=== PATIENT | female | born 1950 | race Caucasian/White ===

== ENCOUNTER → 2017-04-13 | Outpatient (CLI) | payer MEDICARE, OTHER, SELFPAY | PROVIDERS: Visit Provider Internal Medicine | DX: Z12.31 Encounter for screening mammogram for malignant neoplasm of breast (principal) | CPT/HCPCS: 77067; G0202 ==

== ENCOUNTER → 2018-02-13 09:32 | Outpatient (CLI) | payer MEDICARE, OTHER, SELFPAY | PROVIDERS: PCP Internal Medicine; Visit Provider Internal Medicine | DX: I10 Essential (primary) hypertension (principal); R07.9 Chest pain, unspecified | CPT/HCPCS: 93005 ==

== ENCOUNTER → 2018-04-15 08:46 | Outpatient (CLI) | payer MEDICARE, OTHER, SELFPAY ==
--- NOTE | 2018-04-15 08:48 | MM_ITS ---
MM Dig screening mamm BI w/CAD CAD Screening COMPARISON: Mammograms with CAD 04/13/2017 and 04/10/2016 INDICATION: There is no personal or family history of breast cancer. There has been a previous stereotactic biopsy right breast for benign disease. TECHNIQUE: Standard CC and MLO images were obtained. R2 CAD reviewed. FINDINGS: Scattered fibroglandular densities are seen in the central portions of both breasts. There are few scattered benign-appearing microcalcifications in each breast. There are 2 tiny nodular densities upper outer quadrant left breast which are stable. There is a biopsy clip right breast and there are scattered benign-appearing microcalcifications in each breast. There are no suspicious microcalcifications. IMPRESSION: Fibrofatty parenchyma no suspicious lesion seen BI-RADS Category: 2 Benign Finding(s) RECOMMENDED FOLLOW-UP: 1YR - 1 YEAR FOLLOW-UP (A letter has been sent to the patient regarding results of the study.)
== END ==
PROVIDERS: PCP Internal Medicine; Visit Provider Internal Medicine
DX: Z12.31 Encounter for screening mammogram for malignant neoplasm of breast (principal)
CPT/HCPCS: 77067

== ENCOUNTER → 2019-04-17 08:42 | Outpatient (CLI) | payer MEDICARE, OTHER, SELFPAY ==
--- NOTE | 2019-04-17 08:45 | MM_ITS ---
PROCEDURE: MM DIG SCREENING MAMM BI W/CAD CLINICAL INDICATION: SCREENING There is no personal or family history of breast cancer. There been a previous biopsy right breast for benign disease. COMPARISON: [facility] DIG MAMM-SCREEN ROZ from 04/10/2016 [facility] DIG MAMM-SCREEN ROZ W/CAD from 04/13/2017 [facility] MM Dig screening mamm BI w/CAD from 04/15/2018 TECHNIQUE: Standard CC and MLO images were obtained. R2 CAD reviewed. FINDINGS: Scattered fibroglandular densities are seen throughout both breasts. There is a biopsy clip right breast. There is mild ductal hyperplasia in the subareolar regions of both breasts. There are few scattered benign-appearing microcalcifications in each breast. There are couple low-lying nodes near the axillary tail left breast. There is no suspicious lesion in either breast and no suspicious microcalcifications. IMPRESSION: Moderate breast density with no suspicious lesions seen BI-RAD Category: 2 Benign Finding(s) FOLLOW-UP: 1YR 1 Year Follow-up (A letter has been sent to the patient regarding results of the study.) Dictated by: Dr. Andres Mcclendon MD 04/22/2019 10:[address] Andres Mcclendon MD in [place] 04/22/2019 10:52
== END ==
PROVIDERS: PCP Internal Medicine; Visit Provider Internal Medicine
DX: Z12.31 Encounter for screening mammogram for malignant neoplasm of breast (principal)
CPT/HCPCS: 77067

== ENCOUNTER → 2020-04-19 07:55 | Outpatient (CLI) | payer MEDICARE, OTHER, SELFPAY ==
--- NOTE | 2020-04-19 08:02 | MM_ITS ---
PROCEDURE: MM DIG SCREENING MAMM BI W/CAD Digital Breast Tomosynthesis Included CLINICAL INDICATION: SCREENING There is no personal or family history of breast cancer. There has been a previous biopsy right breast benign disease. COMPARISON: MG [facility] DIG MAMM-SCREEN ROZ W/CAD from 04/13/2017 MG [facility] MM Dig screening mamm BI w/CAD from 04/15/2018 MG MM DIG SCREENING MAMM BI W/CAD from 04/17/2019 TECHNIQUE: Standard CC and MLO images and 3D Tomosynthesis was obtained. R2 CAD reviewed. FINDINGS: [id number] fibroglandular densities are seen in the central portions of both breast. There is mild ductal hyperplasia. There is a biopsy clip upper outer portion right breast. There are few scattered benign-appearing microcalcifications in each breast. There is no suspicious lesion in either breast and no suspicious microcalcifications. IMPRESSION: Stable exam with mild ductal hyperplasia and no suspicious lesions seen BI-RAD Category: 2 Benign Finding(s) FOLLOW-UP: 1YR 1 Year Follow-up (A letter has been sent to the patient regarding results of the study.) Dictated by: Dr. Andres Mcclendon MD 04/19/2020 15:24 Dr. Andres Mcclendon MD in [place] 04/19/2020 15:24
== END ==
PROVIDERS: PCP Internal Medicine; Visit Provider Internal Medicine
DX: Z12.31 Encounter for screening mammogram for malignant neoplasm of breast (principal)
CPT/HCPCS: 77063; 77067

== ENCOUNTER → 2021-02-23 18:15 | Outpatient (CLI) | payer MEDICARE, OTHER, SELFPAY ==
[2021-02-23 21:32] LABS: Chloride 106 mmol/L (98-107); Potassium 4.8 mmoL/L (3.5-5.1); Sodium 142 mmol/L (136-145)
[2021-02-23 21:34] LABS: Alanine Aminotransferase 16 U/L (12-78); Alkaline Phosphatase 73 U/L (38-126); Aspartate Amino Transferase 24 U/L (14-36); Bilirubin,Total 0.5 mg/dl (0.2-1.3); Blood Urea Nitrogen 17 mg/dl (7-17); Estimated Glomerular Filt Rate 82 ml/min (>60); GFR (African American) 100 ML/MIN (>60)
[2021-02-23 21:35] LABS: Albumin Level 4.3 g/dl (3.5-5.0); Albumin/Globulin Ratio 1.7 (1.1-1.8); Anion Gap 14.8 mEq/L (5-15); Calcium 9.3 mg/dl (8.4-10.2); Carbon Dioxide 26 mmol/L (22.0-30.0); Chol/HDL Ratio 3.3 (1-3.5); Cholesterol 187 mg/dl (140-200); Globulin 2.5 g/dL (1.3-3.2); Glucose 69 mg/dl (74-100); HDL Cholesterol 56 mg/dl (40-60); Total Protein,Serum 6.8 g/dl (6.3-8.2); Triglycerides 133 mg/dl (30-150); VLDL Cholesterol 27 mg/dL (0-40)
[2021-02-23 21:48] LABS: Direct LDL Cholesterol 103.22 mg/dL (100-129)
== END ==
PROVIDERS: Visit Provider Internal Medicine
DX: I10 Essential (primary) hypertension (principal); E78.5 Hyperlipidemia, unspecified; D69.6 Thrombocytopenia, unspecified
CPT/HCPCS: 80053; 80061

== ENCOUNTER → 2021-03-02 08:56 | Outpatient (CLI) | payer MEDICARE, OTHER, SELFPAY ==
--- NOTE | 2021-03-02 09:00 | CA_ITS ---
APPROVED REPORT Principal Secretary: REGGIE Laterality: Bilateral Study Quality: Good Indications: Bruit, Smoker, HTN, HLD Doppler Spectral Velocity Analysis ECA (R) 133.70/13.90 cm/s dICA (L) 107.90/28.90 cm/s Haris (L) 108.80/26.00 cm/s dICA (R) 99.40/26.70 cm/s pICA (L) 79.90/21.20 cm/s Haris (R) 103.70/28.90 cm/s pICA (R) 104.80/25.70 cm/s dCCA (L) 90.50/18.30 cm/s pCCA (L) 95.40/17.30 cm/s dCCA (R) 71.60/17.60 cm/s pCCA (R) 94.30/17.20 cm/s Vert (L) 46.20/8.70 cm/s Vert (R) 42.40/2.90 cm/s ICA/CCA 1.20 ICA/CCA 1.46 Findings Duplex evaluation demonstrates antegrade flow of the bilateral Vertebral Arteries. Duplex evaluation demonstrates stenosis of the right proximal internal carotid artery in the range of 20-49% with PSV <140 cm/sec, EDV <100 cm/sec, and IC/CC Ratio <4.0. Duplex evaluation demonstrates stenosis of the left proximal internal carotid artery <20% with PSV <140 cm/sec, EDV <100 cm/sec, and IC/CC Ratio <4.0. Conclusion Duplex evaluation demonstrates antegrade flow of the bilateral Vertebral Arteries. Duplex evaluation demonstrates stenosis of the right proximal internal carotid artery in the range of 20-49% with PSV <140 cm/sec, EDV <100 cm/sec, and IC/CC Ratio <4.0. Duplex evaluation demonstrates stenosis of the left proximal internal carotid artery <20% with PSV <140 cm/sec, EDV <100 cm/sec, and IC/CC Ratio <4.0. Electronically signed by : Neto Rodas MD 03/02/2021 17:15:33
== END ==
PROVIDERS: PCP Internal Medicine; Visit Provider Internal Medicine
DX: I65.23 Occlusion and stenosis of bilateral carotid arteries (principal)
CPT/HCPCS: 93880

== ENCOUNTER → 2021-04-20 07:51 | Outpatient (CLI) | payer MEDICARE, OTHER, SELFPAY ==
--- NOTE | 2021-04-20 07:52 | MM_ITS ---
PROCEDURE INFORMATION: Exam: MG Bilateral Screening 3D Mammography Exam date and time: 04/20/2021 7:52 AM Age: 70 years old Clinical indication: Screening mammogram TECHNIQUE: Imaging protocol: Bilateral screening tomosynthesis and 2D mammography including computer-aided detection (CAD) when performed. COMPARISON: 1. MG MM DIG SCREENING MAMM BI W/CAD 04/19/2020 8:02 AM 2. MG MM DIG SCREENING MAMM BI W/CAD 04/17/2019 8:52 AM 3. MG [facility] MM Dig screening mamm BI w/CAD 04/15/2018 9:03 AM 4. MG [facility] DIG MAMM-SCREEN ROZ W/CAD 04/13/2017 10:27 AM FINDINGS: MAMMOGRAPHY: Breast composition: The breast tissue is heterogeneously dense, which may obscure small masses. Mass: Stable benign-appearing subcentimeter nodules are present in the bilateral breasts. No new or morphologically suspicious nodule has developed to suggest malignancy. Architectural distortion: No new or suspicious architectural distortion. Calcifications: Stable benign-appearing calcifications are present. No new or suspicious cluster of microcalcifications have developed. Asymmetric density: No new or suspicious asymmetric density is present Skin thickening: None. Axillary adenopathy: None. IMPRESSION: No mammographic evidence of malignancy. Recommend annual screening mammography unless otherwise clinically indicated. ASSESSMENT: BI-RADS category 2: Benign
== END ==
PROVIDERS: PCP Internal Medicine; Visit Provider Internal Medicine
DX: Z12.31 Encounter for screening mammogram for malignant neoplasm of breast (principal)
CPT/HCPCS: 77063; 77067

== ENCOUNTER → 2021-08-23 12:56 | Outpatient (CLI) | payer MEDICARE, OTHER, SELFPAY ==
[2021-08-23 14:18] LABS: Basophils % 0.6 % (0.1-2.0); Eosinophils # 0.2 K/mm3 (0.0-0.4); Eosinophils % 2.5 % (0.1-12.0); Hematocrit 40.5 % (37.0-47.0); Hemoglobin 13.6 g/dL (12.2-16.2); Lymphocytes # 1.8 K/mm3 (0.7-4.5); Lymphocytes % 23.7 % (10-50); Mean Corpuscular HGB Conc 33.6 g/dL (31.8-35.4); Mean Corpuscular Hemoglobin 31.9 pg (27.0-31.2); Mean Corpuscular Volume 94.9 fl (81-99); Mean Platelet Volume 12.1 fl (7.4-10.4); Monocytes # 0.4 K/mm3 (0.1-1.0); Monocytes % 5.7 % (1.7-9.3); Neutrophils % 67.5 % (37.0-80.0); Platelet Count 187 K/mm3 (142-424); Red Blood Count 4.27 M/mm3 (4.20-5.40); Red Cell Distribution Width 13.7 % (11.5-17.5); White Blood Count 7.4 K/mm3 (4.8-10.8)
[2021-08-23 14:32] LABS: Alanine Aminotransferase 12 U/L (12-78); Albumin Level 4.3 g/dl (3.5-5.0); Alkaline Phosphatase 65 U/L (38-126); Anion Gap 12.4 mEq/L (5-15); Aspartate Amino Transferase 20 U/L (14-36); Bilirubin,Total 0.6 mg/dl (0.2-1.3); Blood Urea Nitrogen 29 mg/dl (7-17); Calcium 9.7 mg/dl (8.4-10.2); Carbon Dioxide 24 mmol/L (22.0-30.0); Chloride 107 mmol/L (98-107); Chol/HDL Ratio 3.9 (1-3.5); Cholesterol 206 mg/dl (140-200); Estimated Glomerular Filt Rate 62 ml/min (>60); GFR (African American) 75 ML/MIN (>60); Globulin 2.2 g/dL (1.3-3.2); Glucose 78 mg/dl (74-100); HDL Cholesterol 53 mg/dl (40-60); Potassium 4.4 mmoL/L (3.5-5.1); Sodium 139 mmol/L (136-145); Total Protein,Serum 6.5 g/dl (6.3-8.2); Triglycerides 88 mg/dl (30-150); VLDL Cholesterol 18 mg/dL (0-40)
[2021-08-23 14:42] LABS: Direct LDL Cholesterol 111.36 mg/dL (100-129)
== END ==
PROVIDERS: Visit Provider Internal Medicine
DX: I10 Essential (primary) hypertension (principal); D69.6 Thrombocytopenia, unspecified; E78.5 Hyperlipidemia, unspecified; E66.09 Other obesity due to excess calories; Z68.32 Body mass index [BMI] 32.0-32.9, adult
CPT/HCPCS: 80053; 80061; 85025

== ENCOUNTER → 2021-11-30 15:36 | Outpatient (CLI) | payer MEDICARE, OTHER, SELFPAY | PROVIDERS: PCP Internal Medicine; Visit Provider Internal Medicine | DX: Z20.822 Contact with and (suspected) exposure to COVID-19 (principal) | CPT/HCPCS: C9803; U0003; U0005 ==

== ENCOUNTER → 2022-02-14 10:17 | Outpatient (POV) | payer MEDICARE, OTHER, SELFPAY | PROVIDERS: Visit Provider Dermatology | DX: Z00.00 Encounter for general adult medical examination without abnormal findings (principal) ==

== ENCOUNTER → 2022-02-24 15:28 | Outpatient (CLI) | payer MEDICARE, OTHER, SELFPAY ==
[2022-02-24 18:57] LABS: Alanine Aminotransferase 11 U/L (12-78); Albumin Level 4.1 g/dl (3.5-5.0); Albumin/Globulin Ratio 1.9 (1.1-1.8); Alkaline Phosphatase 89 U/L (38-126); Aspartate Amino Transferase 21 U/L (14-36); Bilirubin,Total 0.6 mg/dl (0.2-1.3); Blood Urea Nitrogen 21 mg/dl (7-17); Calcium 9.4 mg/dl (8.4-10.2); Carbon Dioxide 22 mmol/L (22.0-30.0); Chloride 105 mmol/L (98-107); Cholesterol 190 mg/dl (140-200); Estimated Glomerular Filt Rate 62 ml/min (>60); GFR (African American) 74 ML/MIN (>60); Globulin 2.2 g/dL (1.3-3.2); Glucose 65 mg/dl (74-100); HDL Cholesterol 48 mg/dl (40-60); Sodium 139 mmol/L (136-145); Total Protein,Serum 6.3 g/dl (6.3-8.2); Triglycerides 127 mg/dl (30-150); VLDL Cholesterol 25 mg/dL (0-40)
[2022-02-24 19:08] LABS: Direct LDL Cholesterol 106.87 mg/dL (100-129)
== END ==
PROVIDERS: PCP Internal Medicine; Visit Provider Internal Medicine
DX: I10 Essential (primary) hypertension (principal)
CPT/HCPCS: 80053; 80061

== ENCOUNTER → 2022-04-18 10:34 | Outpatient (CLI) | payer MEDICARE, OTHER, SELFPAY ==
--- NOTE | 2022-04-18 10:39 | XR_ITS ---
FINAL REPORT CLINICAL HISTORY: COUGH,VIRAL ILLNESS checking for pneumonia, sick x1 wk, soa, productive yellow cough, crackling, fever FINDINGS: Two views of the chest were obtained. The heart size and pulmonary vascularity are within normal limits. The mediastinum is normal. There are left lung base opacities. There is no pneumothorax. The bony thorax is intact. IMPRESSION: Left lung base opacities, worrisome for pneumonia. Reviewed, Interpreted and Dictated by Andre Corado III, MD Transcribed by Adilene Escalante Authenticated and [facility]
== END ==
PROVIDERS: PCP Internal Medicine; Visit Provider Internal Medicine
DX: R05.9 Cough, unspecified (principal); B34.9 Viral infection, unspecified
CPT/HCPCS: 71046

== ENCOUNTER → 2022-04-21 09:49 | Outpatient (CLI) | payer MEDICARE, OTHER, SELFPAY ==
--- NOTE | 2022-04-21 09:52 | MM_ITS ---
PROCEDURE INFORMATION: Exam: MG Bilateral Screening 3D Mammography Exam date and time: 04/21/2022 9:51 AM Age: 71 years old Clinical indication: Screening examination. No family history of breast cancer. History of benign right stereotactic biopsy. TECHNIQUE: Imaging protocol: Bilateral Screening tomosynthesis and 2D mammography including computer-aided detection (CAD) when performed. COMPARISON: 1. MG MM DIG SCREENING MAMM BI W/CAD 04/20/2021 7:56 AM 2. MG MM DIG SCREENING MAMM BI W/CAD 04/19/2020 8:02 AM 3. MG MM DIG SCREENING MAMM BI W/CAD 04/17/2019 8:52 AM 4. MG [facility] MM Dig screening mamm BI w/CAD 04/15/2018 9:03 AM FINDINGS: MAMMOGRAPHY: Breast composition: The breasts are heterogeneously dense, which may obscure small masses. Mass: No suspicious mass. Architectural distortion: None. Calcifications: No suspicious calcifications. Asymmetric density: None. Skin thickening: None. Axillary adenopathy: None. Other findings: Right biopsy clip. IMPRESSION: No mammographic evidence of malignancy. Annual screening is recommended unless otherwise clinically indicated. ASSESSMENT: BI-RADS Category 2: Benign
== END ==
PROVIDERS: PCP Internal Medicine; Visit Provider Internal Medicine
DX: Z12.31 Encounter for screening mammogram for malignant neoplasm of breast (principal)
CPT/HCPCS: 77063; 77067

== ENCOUNTER → 2022-08-25 12:01 | Outpatient (CLI) | payer MEDICARE, OTHER, SELFPAY ==
[2022-08-25 13:25] LABS: Basophils % 0.2 % (0.1-2.0); Eosinophils # 0.3 K/mm3 (0.0-0.4); Eosinophils % 3.3 % (0.1-12.0); Hematocrit 40.2 % (37.0-47.0); Hemoglobin 13.2 g/dL (12.2-16.2); Lymphocytes # 1.7 K/mm3 (0.7-4.5); Lymphocytes % 22.4 % (10-50); Mean Corpuscular HGB Conc 32.7 g/dL (31.8-35.4); Mean Corpuscular Hemoglobin 30.6 pg (27.0-31.2); Mean Corpuscular Volume 93.6 fl (81-99); Mean Platelet Volume 11.3 fl (7.4-10.4); Monocytes # 0.4 K/mm3 (0.1-1.0); Monocytes % 4.5 % (1.7-9.3); Neutrophils # 5.3 K/mm3 (1.8-7.8); Neutrophils % 69.6 % (37.0-80.0); Platelet Count 161 K/mm3 (142-424); Red Cell Distribution Width 13.3 % (11.5-17.5); White Blood Count 7.7 K/mm3 (4.8-10.8)
[2022-08-25 14:39] LABS: Chloride 102 mmol/L (98-107); Sodium 140 mmol/L (136-145)
[2022-08-25 14:40] LABS: Potassium 4.7 mmoL/L (3.5-5.1)
[2022-08-25 14:42] LABS: Alanine Aminotransferase 12 U/L (12-78); Albumin Level 4.1 g/dl (3.5-5.0); Albumin/Globulin Ratio 1.9 (1.1-1.8); Alkaline Phosphatase 66 U/L (38-126); Anion Gap 16.7 mEq/L (5-15); Aspartate Amino Transferase 19 U/L (14-36); Bilirubin,Total 0.4 mg/dl (0.2-1.3); Blood Urea Nitrogen 27 mg/dl (7-17); Carbon Dioxide 26 mmol/L (22.0-30.0); Estimated Glomerular Filt Rate 55 ml/min (>60); GFR (African American) 66 ML/MIN (>60); Globulin 2.2 g/dL (1.3-3.2); Total Protein,Serum 6.3 g/dl (6.3-8.2)
[2022-08-25 14:43] LABS: Calcium 9.1 mg/dl (8.4-10.2); Cholesterol 189 mg/dl (140-200); Glucose 76 mg/dl (74-100); Triglycerides 95 mg/dl (30-150); VLDL Cholesterol 19 mg/dL (0-40)
[2022-08-25 15:26] LABS: Chol/HDL Ratio 3.4 (1-3.5); HDL Cholesterol 56 mg/dl (40-60)
== END ==
PROVIDERS: PCP Internal Medicine; Visit Provider Internal Medicine
DX: I10 Essential (primary) hypertension (principal); E78.5 Hyperlipidemia, unspecified; D69.6 Thrombocytopenia, unspecified; N60.19 Diffuse cystic mastopathy of unspecified breast
CPT/HCPCS: 80053; 80061; 85025

== ENCOUNTER → 2022-09-22 09:51 | Outpatient (CLI) | payer MEDICARE, SELFPAY ==
--- NOTE | 2022-09-22 10:37 | XR_ITS ---
FINAL REPORT TECHNIQUE: Chest PA & Lateral CLINICAL HISTORY: cough, wheezing, concern for pneumonia COMPARISON: 04/18/2022 FINDINGS: 2 views of the chest were performed. The heart size is normal. The mediastinum is within normal limits. There is no acute cardiopulmonary process. There are no pleural effusions. There is no pneumothorax. The bony thorax appears intact. A calcified granuloma is present in the left upper lung field. IMPRESSION: No acute cardiopulmonary process. Reviewed, Interpreted and Dictated by Rashi Milton MD Transcribed by Marjorie Day Authenticated and [facility]
== END ==
PROVIDERS: PCP Internal Medicine; Visit Provider Student in an Organized Health Care Education/Training Program
DX: R05.9 Cough, unspecified (principal); R06.2 Wheezing
CPT/HCPCS: 71046

== ENCOUNTER → 2023-02-26 14:19 | Outpatient (CLI) | payer MEDICARE, SELFPAY ==
[2023-02-26 16:00] LABS: Basophils % 0.4 % (0.1-2.0); Eosinophils # 0.3 K/mm3 (0.0-0.4); Eosinophils % 3.9 % (0.1-12.0); Hematocrit 40.3 % (37.0-47.0); Hemoglobin 13.7 g/dL (12.2-16.2); Lymphocytes # 1.7 K/mm3 (0.7-4.5); Lymphocytes % 20.4 % (10-50); Mean Corpuscular HGB Conc 33.9 g/dL (31.8-35.4); Mean Corpuscular Hemoglobin 32.6 pg (27.0-31.2); Mean Corpuscular Volume 96.2 fl (81-99); Mean Platelet Volume 11.5 fl (7.4-10.4); Monocytes # 0.5 K/mm3 (0.1-1.0); Monocytes % 5.6 % (1.7-9.3); Neutrophils # 5.9 K/mm3 (1.8-7.8); Neutrophils % 69.7 % (37.0-80.0); Platelet Count 155 K/mm3 (142-424); Red Blood Count 4.19 M/mm3 (4.20-5.40); Red Cell Distribution Width 13.3 % (11.5-17.5); White Blood Count 8.5 K/mm3 (4.8-10.8)
[2023-02-26 16:58] LABS: Alanine Aminotransferase 14 U/L (12-78); Albumin Level 4.3 g/dl (3.5-5.0); Albumin/Globulin Ratio 1.9 (1.1-1.8); Alkaline Phosphatase 66 U/L (38-126); Anion Gap 14.5 mEq/L (5-15); Aspartate Amino Transferase 23 U/L (14-36); Bilirubin,Total 0.5 mg/dl (0.2-1.3); Blood Urea Nitrogen 25 mg/dl (7-17); Calcium 9.8 mg/dl (8.4-10.2); Carbon Dioxide 23 mmol/L (22.0-30.0); Chloride 108 mmol/L (98-107); Chol/HDL Ratio 3.8 (1-3.5); Cholesterol 203 mg/dl (140-200); Estimated Glomerular Filt Rate 54 ml/min (>60); GFR (African American) 66 ML/MIN (>60); Globulin 2.3 g/dL (1.3-3.2); Glucose 81 mg/dl (74-100); HDL Cholesterol 53 mg/dl (40-60); Magnesium 1.5 mg/dl (1.6-2.3); Potassium 5.5 mmoL/L (3.5-5.1); Sodium 140 mmol/L (136-145); Total Protein,Serum 6.6 g/dl (6.3-8.2); Triglycerides 104 mg/dl (30-150); VLDL Cholesterol 21 mg/dL (0-40)
[2023-02-26 17:09] LABS: Direct LDL Cholesterol 109.65 mg/dL (100-129)
== END ==
PROVIDERS: PCP Internal Medicine; Visit Provider Internal Medicine
DX: I10 Essential (primary) hypertension (principal); E78.5 Hyperlipidemia, unspecified; K52.839 Microscopic colitis, unspecified; N60.19 Diffuse cystic mastopathy of unspecified breast; D69.6 Thrombocytopenia, unspecified; M47.22 Other spondylosis with radiculopathy, cervical region
CPT/HCPCS: 80053; 80061; 83735; 85025

== ENCOUNTER → 2023-04-19 10:08 | Outpatient (CLI) | payer MEDICARE, SELFPAY ==
--- NOTE | 2023-04-19 10:12 | MM_ITS ---
PROCEDURE INFORMATION: Exam: MG Bilateral Screening 3D Mammography Exam date and time: 04/19/2023 10:22 AM Age: 72 years old Clinical indication: Screening mammogram TECHNIQUE: Imaging protocol: Bilateral Screening tomosynthesis and 2D mammography including computer-aided detection (CAD) when performed. COMPARISON: 1. MG MM DIG SCREENING MAMM BI W/CAD 04/21/2022 9:51 AM 2. MG MM DIG SCREENING MAMM BI W/CAD 04/20/2021 7:56 AM 3. MG MM DIG SCREENING MAMM BI W/CAD 04/19/2020 8:02 AM 4. MG MM DIG SCREENING MAMM BI W/CAD 04/17/2019 8:52 AM FINDINGS: MAMMOGRAPHY: Breast composition: There are scattered areas of fibroglandular density. Mass: None. Architectural distortion: No new or suspicious architectural distortion. Calcifications: Stable benign-appearing calcifications are present. No new or suspicious cluster of microcalcifications have developed. Asymmetric density: No new or suspicious asymmetric density is present Skin thickening: None. Axillary adenopathy: None. IMPRESSION: No mammographic evidence of malignancy. Recommend annual screening mammography unless otherwise clinically indicated. ASSESSMENT: BI-RADS category 2: Benign
== END ==
LOC: RAD 10:09
PROVIDERS: PCP Internal Medicine; Visit Provider Internal Medicine
DX: Z12.31 Encounter for screening mammogram for malignant neoplasm of breast (principal)
CPT/HCPCS: 77063; 77067

== ENCOUNTER 2023-05-22 10:38 | Outpatient (POV) | payer MEDICARE, SELFPAY | END 2023-05-22 23:59 | disposition home or self-care (01) | LOC: SC 10:38 | PROVIDERS: PCP Internal Medicine; Visit Provider Dermatology | DX: Z00.00 Encounter for general adult medical examination without abnormal findings (principal) ==

== ENCOUNTER 2023-08-28 16:55 | Outpatient (CLI) | payer MEDICARE, SELFPAY ==
[2023-08-28 17:42] LABS: Basophils % 0.6 % (0.1-2.0); Eosinophils # 0.3 K/mm3 (0.0-0.4); Eosinophils % 4.3 % (0.1-12.0); Hematocrit 40.9 % (37.0-47.0); Hemoglobin 13.3 g/dL (12.2-16.2); Lymphocytes # 1.7 K/mm3 (0.7-4.5); Lymphocytes % 23.9 % (10-50); Mean Corpuscular HGB Conc 32.6 g/dL (31.8-35.4); Mean Corpuscular Volume 98.3 fl (81-99); Mean Platelet Volume 11.8 fl (7.4-10.4); Monocytes # 0.4 K/mm3 (0.1-1.0); Monocytes % 6.4 % (1.7-9.3); Neutrophils # 4.5 K/mm3 (1.8-7.8); Neutrophils % 64.8 % (37.0-80.0); Platelet Count 152 K/mm3 (142-424); Red Blood Count 4.16 M/mm3 (4.20-5.40); Red Cell Distribution Width 13.8 % (11.5-17.5)
[2023-08-28 18:27] LABS: Alanine Aminotransferase 12 U/L (12-78); Albumin Level 4.2 g/dl (3.5-5.0); Alkaline Phosphatase 80 U/L (38-126); Anion Gap 14.2 mEq/L (5-15); Aspartate Amino Transferase 22 U/L (14-36); Bilirubin,Total 0.6 mg/dl (0.2-1.3); Blood Urea Nitrogen 20 mg/dl (7-17); Calcium 9.6 mg/dl (8.4-10.2); Carbon Dioxide 25 mmol/L (22.0-30.0); Chloride 107 mmol/L (98-107); Chol/HDL Ratio 3.2 (1-3.5); Cholesterol 216 mg/dl (140-200); Estimated Glomerular Filt Rate 61 ml/min (>60); GFR (African American) 74 ML/MIN (>60); Globulin 2.1 g/dL (1.3-3.2); Glucose 66 mg/dl (74-100); HDL Cholesterol 67 mg/dl (40-60); Magnesium 1.6 mg/dl (1.6-2.3); Potassium 5.2 mmoL/L (3.5-5.1); Sodium 141 mmol/L (136-145); Total Protein,Serum 6.3 g/dl (6.3-8.2); Triglycerides 112 mg/dl (30-150); VLDL Cholesterol 22 mg/dL (0-40)
[2023-08-28 18:38] LABS: Direct LDL Cholesterol 115.51 mg/dL (100-129)
== END 2023-08-28 23:59 | disposition home or self-care (01) ==
LOC: LAB.DROPOF 16:56
PROVIDERS: PCP Internal Medicine; Visit Provider Internal Medicine
DX: E78.5 Hyperlipidemia, unspecified (principal); I10 Essential (primary) hypertension; K52.839 Microscopic colitis, unspecified; J30.9 Allergic rhinitis, unspecified
CPT/HCPCS: 80053; 80061; 83735; 85025

== ENCOUNTER 2023-09-13 09:33 | Outpatient (CLI) | payer MEDICARE, SELFPAY | END 2023-09-13 23:59 | disposition home or self-care (01) | LOC: LAB.DROPOF 09-14 09:33 | PROVIDERS: PCP Student in an Organized Health Care Education/Training Program; Visit Provider Student in an Organized Health Care Education/Training Program | DX: R05.9 Cough, unspecified (principal); Z20.828 Contact with and (suspected) exposure to other viral communicable diseases | CPT/HCPCS: 87635 ==

== ENCOUNTER 2024-02-28 14:05 | Outpatient (CLI) | payer MEDICARE, SELFPAY ==
[2024-02-28 13:59] LABS: Albumin Level 4.2 g/dl (3.5-5.0); Chloride 110 mmol/L (98-107); Potassium 4.7 mmoL/L (3.5-5.1); Sodium 141 mmol/L (136-145)
[2024-02-28 14:02] LABS: Alanine Aminotransferase 11 U/L (12-78); Alkaline Phosphatase 70 U/L (38-126); Anion Gap 10.7 mEq/L (5-15); Aspartate Amino Transferase 20 U/L (14-36); Bilirubin,Total 0.6 mg/dl (0.2-1.3); Blood Urea Nitrogen 20 mg/dl (7-17); Calcium 9.3 mg/dl (8.4-10.2); Carbon Dioxide 25 mmol/L (22.0-30.0); Cholesterol 203 mg/dl (140-200); Estimated Glomerular Filt Rate 54 ml/min (>60); GFR (African American) 66 ML/MIN (>60); Globulin 2.1 g/dL (1.3-3.2); Glucose 79 mg/dl (74-100); Magnesium 1.8 mg/dl (1.6-2.3); Total Protein,Serum 6.3 g/dl (6.3-8.2); Triglycerides 111 mg/dl (30-150); VLDL Cholesterol 22 mg/dL (0-40)
[2024-02-28 14:03] LABS: Chol/HDL Ratio 3.8 (1-3.5); HDL Cholesterol 53 mg/dl (40-60)
[2024-02-28 14:13] LABS: Direct LDL Cholesterol 110.41 mg/dL (100-129)
== END 2024-02-28 23:59 | disposition home or self-care (01) ==
LOC: LAB.DROPOF 14:05
PROVIDERS: PCP Internal Medicine; Visit Provider Internal Medicine
DX: E83.42 Hypomagnesemia (principal); I10 Essential (primary) hypertension; E78.5 Hyperlipidemia, unspecified
CPT/HCPCS: 80053; 80061; 83735

== ENCOUNTER 2024-04-21 09:43 | Outpatient (CLI) | payer MEDICARE, SELFPAY ==
--- NOTE | 2024-04-21 09:43 | MM_ITS ---
PROCEDURE INFORMATION: Exam: MG Bilateral Screening 3D Mammography Exam date and time: 04/21/2024 9:34 AM Age: 73 years old Clinical indication: Screening examination TECHNIQUE: Imaging protocol: Bilateral Screening tomosynthesis and 2D mammography including computer-aided detection (CAD) when performed. COMPARISON: 1. MG MM DIG SCREENING MAMM BI W/CAD 04/19/2023 10:22 AM 2. MG MM DIG SCREENING MAMM BI W/CAD 04/21/2022 9:51 AM FINDINGS: MAMMOGRAPHY: Breast composition: There are scattered areas of fibroglandular density. Mass: None. Architectural distortion: None. Calcifications: No suspicious calcifications. Asymmetric density: None. Skin thickening: None. Axillary adenopathy: None. IMPRESSION: No mammographic evidence of malignancy. Annual screening is recommended unless otherwise clinically indicated. ASSESSMENT: BI-RADS Category 1: Negative.
== END 2024-04-21 23:59 | disposition home or self-care (01) ==
LOC: RAD 09:43
PROVIDERS: PCP Internal Medicine; Visit Provider Internal Medicine
DX: Z12.31 Encounter for screening mammogram for malignant neoplasm of breast (principal)
CPT/HCPCS: 77063; 77067

== ENCOUNTER 2024-04-24 06:43 | Observation (INO) | payer MEDICARE, SELFPAY ==
[2024-04-24] VITALS (25 sets, daily range): BP systolic 106–198; BP diastolic 46–93; PULSE 67–94; RESP 11–30; TEMP 36.6–36.8; O2SAT 94–100; BMI 30.7
[2024-04-24] MEDS: TRANEXAMIC ACID 1,000 MG/10 ML VIAL 1000 MG IVP (06:55)
[2024-04-24] MEDS: METHYLPREDNISOLONE SOD SUCC 125MG VIAL 125 MG IM (06:58)
[2024-04-24] MEDS: diphenhydrAMINE 50MG/ML VIAL 50 MG IV (06:59)
[2024-04-24] MEDS: 0.9 % SODIUM CHLORIDE 250 ML 25 ML IV (07:03)
--- NOTE | 2024-04-24 07:05 | HMH.EDGENADL ---
Discharge Plan Disposition Patient Disposition: Admitted Prescriptions Prescriptions: No Action biotin 1 mg capsule 1 mg PO DAILY PreserVision AREDS [id number] arst-cm-tged capsule 1 cap PO BID albuterol sulfate 90 mcg/actuation HFA aerosol inhaler 1 puff inhalation QID PRN (Reason: shortness of breath or wheezing) Qty: 6.7 0RF budesonide 3 mg capsule,delayed,extend.release PO Patient Comments: TAKE 1 TO 2 CAPSULES BY MOUTH DAILY OR DIRECTED NEEDED FOR COLITIS amlodipine 10 mg tablet See Rx Instructions .ROUTE .COMPLEX Qty: 90 1RF Dose Instruction: TAKE 1 TABLET BY MOUTH DAILY Rx Instructions: TAKE 1 TABLET BY MOUTH DAILY lisinopril 20 mg tablet See Rx Instructions .ROUTE .COMPLEX Qty: 90 1RF Dose Instruction: TAKE 1 TABLET BY MOUTH EVERY MORNING FOR BLOOD PRESSURE Rx Instructions: TAKE 1 TABLET BY MOUTH EVERY MORNING FOR BLOOD PRESSURE magnesium oxide 250 mg magnesium tablet See Rx Instructions .ROUTE .COMPLEX Qty: 90 1RF Dose Instruction: TAKE 1 TABLET BY MOUTH ONCE DAILY Rx Instructions: TAKE 1 TABLET BY MOUTH ONCE DAILY rosuvastatin 10 mg tablet 10 mg PO DAILY Qty: 90 1RF Referrals Follow up/Referrals: Saul Ortiz MD [Primary Care Provider] - See instructions Clinical Impressions Clinical Impression: ENIO inhibitor-aggravated angioedema Print Language Print Language: Burkinan Discharge ED Provider: Napoleon Sam General Adult HPI <Napoleon Sam MD - Last Filed: 04/24/24 07:20> General Chief complaint: Recheck/Abnormal Lab/Rx Stated complaint: right side face swollen Time Seen by Provider: 04/24/24 07:03 History of Present Illness HPI narrative: 73-year-old female with history of hypertension on lisinopril presents with angioedema. She reports that she woke up at approximate 4 AM and felt like she was having some difficulty swallowing. She looked in the mirror and noticed the right side of her tongue was swollen. She took some Benadryl and feels like the right side is maybe a little bit better but now feels like the left side is starting to swell. She reports fullness in her submandibular area. Related Data Home Medications ?Medication ?Instructions ?Recorded ?Confirmed biotin 1 mg capsule 1 mg PO DAILY 08/29/21 02/28/24 vitamins A,C,U-vewh-pfkusk 4,296 1 cap PO BID 08/29/21 02/28/24 mcg-226 mg-90 mg capsule (PreserVision AREDS) budesonide 3 mg mg PO 09/13/23 02/28/24 capsule,delayed,extended release Previous Rx's ?Medication ?Instructions ?Recorded albuterol sulfate 90 mcg/actuation 1 puff inhalation QID PRN 09/21/22 aerosol inhaler shortness of breath or wheezing #6.7 grams amlodipine 10 mg tablet See Rx Instructions .Route 02/28/24 .COMPLEX #90 tabs lisinopril 20 mg tablet See Rx Instructions .Route 02/28/24 .COMPLEX #90 tabs magnesium oxide See Rx Instructions .Route 02/28/24 .COMPLEX #90 tabs rosuvastatin 10 mg tablet 10 mg PO DAILY #90 tabs 03/28/24 Allergies Allergy/AdvReac Type Severity Reaction Status Date / Time Penicillins (PENICILLINS) Allergy Mild Verified 02/28/24 08:58 [facility] <Napoleon Sam MD - Last Filed: 04/24/24 07:20> [facility] Disclaimer: The information contained in this section may have been updated after the patient was seen, as this information can be updated by other users. Medical History Tobacco use Surgical History No significant past surgical history Family History Other No significant family history Social History Smoking Status: Current every day smoker alcohol intake: current alcohol intake frequency: holidays/special occasions only current occupational status: retired Travel in the last 8 weeks: None Have you lived/traveled outside US in past 30 days?: No Contact w/someone who lives/traveled outside US past 30 days?: No Exposure to someone with infectious disease in past 14 days?: No Do you have a fever (greater than 100.4 F or 38 C)?: No Have you tested positive for COVID-19: No Exposed to someone with COVID-19 in past 14 days?: No Do you have a sore throat?: No Do you have a cough?: No Do you have any weakness?: No Do you have any diarrhea?: No Are you experiencing any unusual bleeding?: No Do you have any muscle aches/pain?: No Do you have any abdominal pain?: No Are you experiencing loss of taste or smell?: No Other Medical History Have you received the Pneumonia Vaccine: Yes <Napoleon Sam MD - Last Filed: 04/24/24 07:20> ROS Obtained: Yes All systems reviewed & no additional complaints except as documented Physical Exam <Napoleon Sam MD - Last Filed: 04/24/24 07:20> General General appearance: alert and in no apparent distress Head Head exam: atraumatic and normocephalic Eye Eye exam: Present normal appearance, PERRL and EOMI ENT ENT exam: Present other (Bilateral submandibular fullness, right tongue is markedly swollen) Neck Neck exam: Present normal inspection, full ROM and trachea midline Chest Chest inspection: Present normal inspection and symmetric chest wall rise; Absent tenderness Respiratory Respiratory exam: Present normal lung sounds bilaterally; Absent respiratory distress Cardiovascular Cardiovascular exam: Present regular rate and normal rhythm Abdominal Exam Abdominal exam: Present soft; Absent distention, tenderness or guarding Extremities Exam Extremities exam: Present normal inspection; Absent edema or joint swelling Back Exam Back exam: Present normal inspection; Absent tenderness Neurological Exam Neurological exam: Present alert and oriented X3; Absent motor sensory deficit Psychiatric Psychiatric exam: Present normal affect and normal mood Skin Skin exam: Present warm, dry and normal color Lymphatic Lymphatic Findings: no adenopathy Medical Decision Making <Napoleon Sam MD - Last Filed: 04/24/24 07:20> Medical Records Medical records reviewed: Yes I reviewed the patient's medical records. Screening: Per USPSTF and CDC recommendations, given the prevalence of disease in our region, it is our hospital?s policy to screen for HIV and viral Hepatitis for all patients aged 18 and over and those with ongoing risk factors. Vasquez Inquiry Pt receiving controlled substance: No Vasquez was queried for this patient: No Vital Signs: 04/24/24 06:45 04/24/24 06:48 04/24/24 07:14 Temperature 97.9 F Temperature Source Temporal Artery Scan Pulse Rate 80 78 Pulse Rate [Right] 94 H Respiratory Rate 17 18 Blood Pressure 198/89 H 162/65 H Blood Pressure [Right Arm] 198/89 H Blood Pressure Mean [Right Arm] 125 02 Sat by Pulse Oximetry 97 100 96 Oxygen Delivery Method Room Air 04/24/24 07:32 Temperature Temperature Source Pulse Rate 82 Pulse Rate [Right] Respiratory Rate 30 H Blood Pressure 106/77 L Blood Pressure [Right Arm] Blood Pressure Mean [Right Arm] 02 Sat by Pulse Oximetry 95 Oxygen Delivery Method Lab Data Lab results reviewed: Yes I reviewed the patient's lab results. Lab Results 04/24/24 06:55: WBC 12.4 H, RBC 4.10 L, Hgb 12.9, Hct 37.6, MCV 91.7, MCH 31.5 H, MCHC 34.3, RDW 12.6, Plt Count 159, MPV 11.4 H, Neut % (Auto) 69.9, Lymph % (Auto) 19.0, Brantley % (Auto) 7.4, Eos % (Auto) 3.1, Baso % (Auto) 0.3, Neut # (Auto) 8.6 H, Lymph # (Auto) 2.4, Brantley # (Auto) 0.9, Eos # (Auto) 0.4, Baso # (Auto) 0.0, Sodium 140, Potassium 4.5, Chloride 111 H, Carbon Dioxide 22, Anion Gap 11.5, BUN 26 H, Creatinine 1.20 H, Estimated Creat Clear 56, Estimated GFR 44 L, Est GFR ( Amer) 53 L, Glucose 102 H, Calcium 9.6, Total Bilirubin 0.6, AST 25, ALT 17, Alkaline Phosphatase 82, Total Protein 6.4, Albumin 4.3, Globulin 2.1, Albumin/Globulin Ratio 2.0 H, Blood Type Confirm A Positive 04/24/24 07:10: Blood Type A Positive 04/24/24 06:55 04/24/24 06:55 Orders (Tests/Meds): ED MEDICATIONS Generic Name Dose Route Start Last Admin Trade Name Freq PRN Reason Stop Dose Admin Sodium Chloride 250 mls @ 25 mls/hr 04/24/24 07:00 04/24/24 07:03 Sod Chlor 0.9% 250ml Bag IV 04/25/24 06:59 25 mls/hr .Q10H DEX Administration Discontinued Medications Generic Name Dose Route Start Last Admin Trade Name Freq PRN Reason Stop Dose Admin Diphenhydramine HCl 50 mg 04/24/24 06:53 04/24/24 06:59 Diphenhydramine 50mg/Ml Vial IV 04/24/24 06:54 50 mg ONCE ONE Administration Epinephrine HCl 0.3 mg 04/24/24 06:56 04/24/24 07:27 Epinephrine 1 Mg/Ml Ampul IM 04/24/24 06:57 0.3 mg ONCE ONE Administration Methylprednisolone Sodium Succinate 125 mg 04/24/24 06:53 04/24/24 06:58 Methylprednisolone Sod Succ 125mg Vial IM 04/24/24 06:54 125 mg ONCE ONE Administration Tranexamic Acid 1,000 mg 04/24/24 06:52 04/24/24 06:55 Tranexamic Acid 1,000 Mg/10 Ml Vial IVP 04/24/24 06:53 1,000 mg ONCE ONE Administration ORDERS Category Date Time Status ABO/RH Type Stat [facility] 04/24/24 07:10 Results Transfuse FFP [Fresh Frozen Plasma] Stat [facility] 04/24/24 07:10 Results CBC w/Auto Diff [Complete Blood Count Auto Diff] Stat Lab 04/24/24 06:55 Completed CMP [Comprehensive Metabolic Panel] Stat Lab 04/24/24 06:55 Completed HIV (1&2) Antibody Rapid Stat Lab 04/24/24 06:55 Received Hep C Ab with Reflex to RNA Stat Lab 04/24/24 06:55 Received Medical Decision Narrative: 73-year-old female with history of of hypertension on lisinopril presents for angioedema starting when she woke up at approximately 4 AM. She reports some difficulty swallowing and right-sided tongue swelling initially but denies any shortness of breath. Reports that she feels like it starting to go to the left side. History was obtained via interactive discussion with patient, family, chart review. On arrival, patient is [afebrile, hemodynamically stable, satting appropriately, alert, oriented x4, GCS 15], moving all extremities spontaneously. Full physical exam performed and significant for bilateral submandibular fullness, right tongue swelling, patient maintaining secretions without any evidence of respiratory distress on exam. Differential includes but is not limited to ENIO inhibitor induced angioedema. Less likely anaphylaxis or idiopathic. Patient was given 0.3 mg IM epinephrine, 125 IV Solu-Medrol, 50 mg IV Benadryl, 1 g TXA, 2 units FFP for symptomatic management and correction of underlying abnormalities. Workup initiated including CBC CMP. Maria Guadalupe Borges MD - Last Filed: 04/24/24 08:20> Vital Signs: 04/24/24 06:45 04/24/24 06:48 04/24/24 07:14 Temperature 97.9 F Temperature Source Temporal Artery Scan Pulse Rate 80 78 Pulse Rate [Right] 94 H Respiratory Rate 17 18 Blood Pressure 198/89 H 162/65 H Blood Pressure [Right Arm] 198/89 H Blood Pressure Mean [Right Arm] 125 02 Sat by Pulse Oximetry 97 100 96 Oxygen Delivery Method Room Air 04/24/24 07:32 Temperature Temperature Source Pulse Rate 82 Pulse Rate [Right] Respiratory Rate 30 H Blood Pressure 106/77 L Blood Pressure [Right Arm] Blood Pressure Mean [Right Arm] 02 Sat by Pulse Oximetry 95 Oxygen Delivery Method Lab Data Lab Results 04/24/24 06:55: WBC 12.4 H, RBC 4.10 L, Hgb 12.9, Hct 37.6, MCV 91.7, MCH 31.5 H, MCHC 34.3, RDW 12.6, Plt Count 159, MPV 11.4 H, Neut % (Auto) 69.9, Lymph % (Auto) 19.0, Brantley % (Auto) 7.4, Eos % (Auto) 3.1, Baso % (Auto) 0.3, Neut # (Auto) 8.6 H, Lymph # (Auto) 2.4, Brantley # (Auto) 0.9, Eos # (Auto) 0.4, Baso # (Auto) 0.0, Sodium 140, Potassium 4.5, Chloride 111 H, Carbon Dioxide 22, Anion Gap 11.5, BUN 26 H, Creatinine 1.20 H, Estimated Creat Clear 56, Estimated GFR 44 L, Est GFR ( Amer) 53 L, Glucose 102 H, Calcium 9.6, Total Bilirubin 0.6, AST 25, ALT 17, Alkaline Phosphatase 82, Total Protein 6.4, Albumin 4.3, Globulin 2.1, Albumin/Globulin Ratio 2.0 H, Blood Type Confirm A Positive 04/24/24 07:10: Blood Type A Positive Orders (Tests/Meds): ED MEDICATIONS Generic Name Dose Route Start Last Admin Trade Name Freq PRN Reason Stop Dose Admin Sodium Chloride 250 mls @ 25 mls/hr 04/24/24 07:00 04/24/24 07:03 Sod Chlor 0.9% 250ml Bag IV 04/25/24 06:59 25 mls/hr .Q10H DEX Administration Discontinued Medications Generic Name Dose Route Start Last Admin Trade Name Monica PRN Reason Stop Dose Admin Diphenhydramine HCl 50 mg 04/24/24 06:53 04/24/24 06:59 Diphenhydramine 50mg/Ml Vial IV 04/24/24 06:54 50 mg ONCE ONE Administration Epinephrine HCl 0.3 mg 04/24/24 06:56 04/24/24 07:27 Epinephrine 1 Mg/Ml Ampul IM 04/24/24 06:57 0.3 mg ONCE ONE Administration Methylprednisolone Sodium Succinate 125 mg 04/24/24 06:53 04/24/24 06:58 Methylprednisolone Sod Succ 125mg Vial IM 04/24/24 06:54 125 mg ONCE ONE Administration Tranexamic Acid 1,000 mg 04/24/24 06:52 04/24/24 06:55 Tranexamic Acid 1,000 Mg/10 Ml Vial IVP 04/24/24 06:53 1,000 mg ONCE ONE Administration ORDERS Category Date Time Status ABO/RH Type Stat [facility] 04/24/24 07:10 Results Transfuse FFP [Fresh Frozen Plasma] Stat K 04/24/24 07:10 Results CBC w/Auto Diff [Complete Blood Count Auto Diff] Stat Lab 04/24/24 06:55 Completed CMP [Comprehensive Metabolic Panel] Stat Lab 04/24/24 06:55 Completed HIV (1&2) Antibody Rapid Stat Lab 04/24/24 06:55 Received Hep C Ab with Reflex to RNA Stat Lab 04/24/24 06:55 Received Medical Decision Narrative: 73-year-old female with history of of hypertension on lisinopril presents for angioedema starting when she woke up at approximately 4 AM. She reports some difficulty swallowing and right-sided tongue swelling initially but denies any shortness of breath. Reports that she feels like it starting to go to the left side. History was obtained via interactive discussion with patient, family, chart review. On arrival, patient is [afebrile, hemodynamically stable, satting appropriately, alert, oriented x4, GCS 15], moving all extremities spontaneously. Full physical exam performed and significant for bilateral submandibular fullness, right tongue swelling, patient maintaining secretions without any evidence of respiratory distress on exam. Differential includes but is not limited to ENIO inhibitor induced angioedema. Less likely anaphylaxis or idiopathic. Patient was given 0.3 mg IM epinephrine, 125 IV Solu-Medrol, 50 mg IV Benadryl, 1 g TXA, 2 units FFP for symptomatic management and correction of underlying abnormalities. Workup initiated including CBC CMP. This is Dr. Borges I took over from Dr. Sam around 6:50 AM patient arrived shortly before that she had severe angioedema with tongue elevation to the point of the tongue almost reaching the roof of the mouth she had this phonation also had bleeding at the base of her tongue given the severe edema. She also had significant submandibular fullness and swelling and almost certainly glottic involvement with the symptoms that she was demonstrating. I did not have a bedside nasopharyngeal or nasotracheal scope and did discuss the case with our casing mixer who does have access to the stool however after an hour and 15 minutes of observation her improvement in her symptoms were very reassuring her submandibular space is now soft and tongue elevation has improved after medications that were administered by Dr. Sam had the opportunity to take place. This almost certainly secondary to the ENIO inhibitor which is very common. She has no history of hereditary angioedema etc. Given the fact that she is still symptomatic and this had significant airway involvement we will keep her in the hospital for observation and close serial assessments. Dr. davidson will evaluate her this morning. I spoke with hospital medicine who agreed to accept her for further evaluation and management. Procedures <Napoleon Sam MD - Last Filed: 04/24/24 07:20> Risk/Benefits of Procedure(s) Were Explained: Yes Critical Care <Napoleon Sam MD - Last Filed: 04/24/24 07:20> Critical Care Time Critical Care Time: Yes Attestation: On 04/24/24, the high probability of a clinically significant, sudden or life threatening deterioration of the following system(s) required my full and direct attention, intervention and personal management. The time I documented below is in addition to time spent performing reported procedures but includes the following listed in this critical care notation. Total Time Total Critical Care Time: 40
--- NOTE | 2024-04-24 07:06 | PC.NURSE ---
SUKHI Manning administered 0.3mg IM of EPI 1:1,000 in the R deltoid of pt. Also administered as per the MAR 125mg of Solu-Medrol 50mg of Diphenhydramine, 1g of Tranexamic Acid. Lab was contacted for Fresh Frozen Plasma and uncrossedmatched blood for this pt. Lab also at bedside for type and screen.
[2024-04-24 07:07] LABS: Basophils % 0.3 % (0.1-2.0); Eosinophils # 0.4 K/mm3 (0.0-0.4); Eosinophils % 3.1 % (0.1-12.0); Hematocrit 37.6 % (37.0-47.0); Hemoglobin 12.9 g/dL (12.2-16.2); Lymphocytes # 2.4 K/mm3 (0.7-4.5); Mean Corpuscular HGB Conc 34.3 g/dL (31.8-35.4); Mean Corpuscular Hemoglobin 31.5 pg (27.0-31.2); Mean Corpuscular Volume 91.7 fl (81-99); Mean Platelet Volume 11.4 fl (7.4-10.4); Monocytes # 0.9 K/mm3 (0.1-1.0); Monocytes % 7.4 % (1.7-9.3); Neutrophils # 8.6 K/mm3 (1.8-7.8); Neutrophils % 69.9 % (37.0-80.0); Platelet Count 159 K/mm3 (142-424); Red Cell Distribution Width 12.6 % (11.5-17.5); White Blood Count 12.4 K/mm3 (4.8-10.8)
[2024-04-24 07:15] LABS: Alanine Aminotransferase 17 U/L (12-78); Albumin Level 4.3 g/dl (3.5-5.0); Alkaline Phosphatase 82 U/L (38-126); Anion Gap 11.5 mEq/L (5-15); Aspartate Amino Transferase 25 U/L (14-36); Bilirubin,Total 0.6 mg/dl (0.2-1.3); Blood Urea Nitrogen 26 mg/dl (7-17); Calcium 9.6 mg/dl (8.4-10.2); Carbon Dioxide 22 mmol/L (22.0-30.0); Chloride 111 mmol/L (98-107); Creatinine Clearance Estimated 56 mL/min (50-200); Estimated Glomerular Filt Rate 44 ml/min (>60); GFR (African American) 53 ML/MIN (>60); Globulin 2.1 g/dL (1.3-3.2); Glucose 102 mg/dl (74-100); Potassium 4.5 mmoL/L (3.5-5.1); Sodium 140 mmol/L (136-145); Total Protein,Serum 6.4 g/dl (6.3-8.2)
[2024-04-24] MEDS: EPINEPHrine 1 MG/ML AMPUL 0.3 MG IM (07:27)
--- NOTE | 2024-04-24 08:05 | PC.NURSE ---
dr gibbs at bedside to reevaluate pt
--- NOTE | 2024-04-24 08:15 | PC.NURSE ---
dr gibbs speaking with hospitalist
--- NOTE | 2024-04-24 08:35 | PC.NURSE ---
report called to Joya.
--- NOTE | 2024-04-24 08:54 | HMH.PHAINT1 ---
Pharmacy Intervention Comments: MEDICATION RECONCILIATION COMPLETED ON PATIENT USING EXTERNAL FILL HISTORY FROM PHARMACY. -PAM BOGGS, BEAND
[2024-04-24 13:38] LABS: HIV Combo NEGATIVE (Negative)
--- NOTE | 2024-04-24 16:11 | P.HPDS_ITS ---
General Admission date:: 04/24/24 *Admission Date: 04/24/24 *Chief complaint: Swelling in throat *History of present illness: Adapted from Dr. Borges's note: Aide Purdy is a 73-year-old female with history of hypertension on lisinopr il presents with angioedema. She reports that she woke up at approximate 4 AM and felt like she was having some difficulty swallowing. She looked in the mirror and noticed the right side of her tongue was swollen. She took some Benadryl and feels like the right side is maybe a little bit better but now feels like the left side is starting to swell. She reports fullness in her submandibular area. [facility] Disclaimer: The information contained in this section may have been updated after the patient was seen, as this information can be updated by other users. Medical History Tobacco use Surgical History No significant past surgical history Family History Other No significant family history Social History Smoking Status: Current every day smoker alcohol intake: current alcohol intake frequency: holidays/special occasions only current occupational status: retired Travel in the last 8 weeks: None Other Medical History Have you received the Flu Vaccine for this season: Yes Have you received the Pneumonia Vaccine: Yes Exam Data for Last 24 hours Vital signs and Labs for Last 24 Hours: Temp Pulse Resp BP Pulse Ox O2 Del Method 98.2 F 73 16 119/65 95 Room Air 04/24/24 11:24 04/24/24 14:00 04/24/24 14:00 04/24/24 14:00 04/24/24 14:00 04/24/24 14:00 Laboratory Results - last 24 hr 04/24/24 06:55: WBC 12.4 H, RBC 4.10 L, Hgb 12.9, Hct 37.6, MCV 91.7, MCH 31.5 H , MCHC 34.3, RDW 12.6, Plt Count 159, MPV 11.4 H, Neut % (Auto) 69.9, Lymph % (Auto) 19.0, Clare % (Auto) 7.4, Eos % (Auto) 3.1, Baso % (Auto) 0.3, Neut # (Auto) 8.6 H, Lymph # (Auto) 2.4, Clare # (Auto) 0.9, Eos # (Auto) 0.4, Baso # (Auto) 0.0, Sodium 140, Potassium 4.5, Chloride 111 H, Carbon Dioxide 22, Anion Gap 11.5, BUN 26 H, Creatinine 1.20 H, Estimated Creat Clear 56, Estimated GFR 44 L, Est GFR ( Amer) 53 L, Glucose 102 H, Calcium 9.6, Total Bilirubin 0.6, AST 25, ALT 17, Alkaline Phosphatase 82, Total Protein 6.4, Albumin 4.3, Globulin 2.1, Albumin/Globulin Ratio 2.0 H, HIV Ag/Ab Combo Qual Negative, Blood Type Confirm A Positive 04/24/24 07:10: Blood Type A Positive I & O for Last 24 hours: Intake & Output 04/21/24 04/22/24 04/23/24 04/24/24 23:59 23:59 23:59 23:59 Intake Total 683 / 683 Balance 683 / 683 Weight 84.867 kg Constitutional Constitutional: no acute distress *Routine HEENT Exam Head: Present normocephalic Eye: Present EOMI and PERRL ENT: Present mucous membranes moist *Routine Neck Exam Neck: Present supple; Absent lymphadenopathy *Routine Respiratory Exam Respiratory: Present CTA bilaterally *Routine Cardiovascular Exam Cardiovascular: Present RRR *Routine Abdominal Exam Abdominal: Present soft and normoactive bowel sounds; Absent tenderness *Routine Rectal Exam Rectal:: deferred *Routine Genitalia Exam Genitalia:: deferred *Routine Extremities Exam Extremities: Absent cyanosis, clubbing or edema *Routine Skin Exam Skin: Present warm; Absent rash *Routine Neurological Exam Neurological: Present alert and oriented X3 Meds Home Medications and Allergies Home Medications ?Medication ?Instructions ?Recorded ?Confirmed ?Type vitamins A,C,I-ubbi-efpuns 4,296 1 cap PO BID 08/29/21 04/28/24 History mcg-226 mg-90 mg capsule (PreserVision AREDS) amlodipine 10 mg tablet 10 mg PO DAILY 04/24/24 04/28/24 History epinephrine 0.3 mg/0.3 mL 0.3 mg (0.3 mL) IM Q10M PRN 04/24/24 04/28/24 Rx injection, auto-injector (EpiPen) anaphylaxis #2 ea magnesium oxide 250 mg PO DAILY 04/24/24 04/28/24 History hydrochlorothiazide 12.5 mg tablet 12.5 mg PO DAILY #30 tabs 04/28/24 04/28/24 Rx New Prescriptions to Start Prescriptions: epinephrine [EpiPen] Broderick Olivas Allergies Allergy/AdvReac Type Severity Reaction Status Date / Time Penicillins (PENICILLINS) Allergy Mild Verified 04/28/24 13:13 Hospital Course Hospital Course Hospital Course: Aide Purdy is a 73 year old female with who admitted for angioedema. #Angioedema #Hypertension - Has used lisinopril for years, but was recently switching from atorvastatin to rosuvastatin about 2 weeks ago. Both these medications have been associated with angioedema. - Patient was given 0.3 mg IM epinephrine, 125 IV Solu-Medrol, 50 mg IV Benadryl, 1 g TXA, 1 unit FFP with near resolution of symptoms within 2-3 hours. - Remained stable for 8 hours. Vitals stable. Protecting airway. - Discharged with Epipen, will closely follow-up with PCP within 3 days. Discontinued both lisinopril and rosuvastatin given risks as above, will discuss alternatives with PCP. Continue amlodipine 10mg. Total time spent on discharge: 32 minutes on chart review, counseling, documentation, and direct care with patient. Results Data Completed and Pending Labs on day of discharge: Labs from last 24 hours 04/24/24 04/24/24 07:10 06:55 WBC 12.4 H RBC 4.10 L Hgb 12.9 Hct 37.6 MCV 91.7 MCH 31.5 H MCHC 34.3 RDW 12.6 Plt Count 159 MPV 11.4 H Neut % (Auto) 69.9 Lymph % (Auto) 19.0 Clare % (Auto) 7.4 Eos % (Auto) 3.1 Baso % (Auto) 0.3 Neut # (Auto) 8.6 H Lymph # (Auto) 2.4 Clare # (Auto) 0.9 Eos # (Auto) 0.4 Baso # (Auto) 0.0 Sodium 140 Potassium 4.5 Chloride 111 H Carbon Dioxide 22 Anion Gap 11.5 BUN 26 H Creatinine 1.20 H Estimated Creat Clear 56 Estimated GFR 44 L Est GFR ( Amer) 53 L Glucose 102 H Calcium 9.6 Total Bilirubin 0.6 AST 25 ALT 17 Alkaline Phosphatase 82 Total Protein 6.4 Albumin 4.3 Globulin 2.1 Albumin/Globulin Ratio 2.0 H HIV Ag/Ab Combo Qual Negative Blood Type A Positive Blood Type Confirm A Positive Discharge Plan Disposition Patient Disposition: Home, Self-Care Condition: Fair Follow up Plan Follow up with: Saul Ortiz MD [Primary Care Provider] - 04/28/24 3:00 pm Prescriptions/Medication Reconciliation: New epinephrine [EpiPen] 0.3 mg/0.3 mL auto-injector 0.3 mg IM Q10M PRN (Reason: anaphylaxis) Qty: 2 1RF Rx Instructions: for 2 doses Continued PreserVision AREDS [id number] myfq-yh-wada capsule 1 cap PO BID amlodipine 10 mg tablet 10 mg PO DAILY magnesium oxide 250 mg magnesium tablet 250 mg PO DAILY Discontinued rosuvastatin 10 mg tablet 10 mg PO DAILY Qty: 90 1RF lisinopril 20 mg tablet 20 mg PO DAILY No Action hydrochlorothiazide 12.5 mg tablet 12.5 mg PO DAILY Qty: 30 2RF Problem Reconciliation Problems Reviewed?: Yes Patient Discharge Instructions Additional Instructions: I have discontinued both lisinopril and rosuvastatin as both these medications have been associated with angioedema. Please follow-up with your PCP within the next couple days to discuss alternatives to these medications. Patient Instructions: Angioedema, DI for Angioedema Print Language: Yakut Providers Primary Care Provider: Saul Ortiz Admit Provider: Broderick Olivas Attending Provider: Broderick Olivas
[2024-04-25 05:53] LABS: HCV Ab Non Reactive (Non Reactive)
--- NOTE | 2024-04-25 09:55 | SW/DCPLANNER ---
Spoke with patient on the phone. Patient stated that she is doing well. Patient stated that she was able to get her medicine picked up from [facility]. Patient stated that she is aware of her upcoming appointment on the . Patient stated that she has no concerns or quesitons at this time. Robert Ly
== END 2024-04-24 17:22 | disposition home or self-care (01) ==
LOC: ER 08:18 → 2ND 08:30
PROVIDERS: Admitting Provider Student in an Organized Health Care Education/Training Program; Emergency Provider Emergency Medicine; PCP Internal Medicine; Visit Provider Student in an Organized Health Care Education/Training Program
DX: T78.3XXA Angioneurotic edema, initial encounter (principal); T46.6X5A Adverse effect of antihyperlipidemic and antiarteriosclerotic drugs, initial encounter; I10 Essential (primary) hypertension; F17.210 Nicotine dependence, cigarettes, uncomplicated; Z79.51 Long term (current) use of inhaled steroids
CPT/HCPCS: 36415; 80053; 85025; 86803; 86900; 86901; 87389; 99291; G0378; J0171; J1200; J2919; P9017

== ENCOUNTER 2024-05-26 14:05 | Outpatient (CLI) | payer MEDICARE, SELFPAY ==
[2024-05-26 14:21] LABS: Anion Gap 14.2 mEq/L (5-15); Blood Urea Nitrogen 20 mg/dl (7-17); Calcium 9.6 mg/dl (8.4-10.2); Carbon Dioxide 27 mmol/L (22.0-30.0); Chloride 105 mmol/L (98-107); Estimated Glomerular Filt Rate 61 ml/min (>60); GFR (African American) 74 ML/MIN (>60); Glucose 74 mg/dl (74-100); Magnesium 1.7 mg/dl (1.6-2.3); Potassium 5.2 mmoL/L (3.5-5.1); Sodium 141 mmol/L (136-145)
== END 2024-05-26 23:59 | disposition home or self-care (01) ==
LOC: LAB.DROPOF 14:05
PROVIDERS: PCP Internal Medicine; Visit Provider Internal Medicine
DX: E83.42 Hypomagnesemia (principal); I10 Essential (primary) hypertension; F17.200 Nicotine dependence, unspecified, uncomplicated
CPT/HCPCS: 80048; 83735

== ENCOUNTER 2024-08-28 10:00 | Outpatient (CLI) | payer MEDICARE, SELFPAY ==
[2024-08-28 15:20] LABS: Alanine Aminotransferase 13 U/L (12-78); Albumin Level 4.5 g/dl (3.5-5.0); Albumin/Globulin Ratio 2.1 (1.1-1.8); Alkaline Phosphatase 78 U/L (38-126); Anion Gap 8.5 mEq/L (5-15); Aspartate Amino Transferase 23 U/L (14-36); Bilirubin,Total 0.6 mg/dl (0.2-1.3); Blood Urea Nitrogen 27 mg/dl (7-17); Calcium 9.3 mg/dl (8.4-10.2); Carbon Dioxide 27 mmol/L (22.0-30.0); Chloride 109 mmol/L (98-107); Chol/HDL Ratio 4.3 (1-3.5); Cholesterol 221 mg/dl (140-200); Estimated Glomerular Filt Rate 54 ml/min (>60); GFR (African American) 66 ML/MIN (>60); Globulin 2.1 g/dL (1.3-3.2); Glucose 74 mg/dl (74-100); HDL Cholesterol 52 mg/dl (40-60); Potassium 4.5 mmoL/L (3.5-5.1); Sodium 140 mmol/L (136-145); Total Protein,Serum 6.6 g/dl (6.3-8.2); Triglycerides 115 mg/dl (30-150); VLDL Cholesterol 23 mg/dL (0-40)
[2024-08-28 15:31] LABS: Direct LDL Cholesterol 144.01 mg/dL (100-129)
== END 2024-08-28 23:59 | disposition home or self-care (01) ==
LOC: LAB.DROPOF 08-29 12:39
PROVIDERS: PCP Internal Medicine; Visit Provider Internal Medicine
DX: E83.42 Hypomagnesemia (principal); I10 Essential (primary) hypertension; E78.5 Hyperlipidemia, unspecified
CPT/HCPCS: 80053; 80061; 83735

== ENCOUNTER 2024-12-10 14:17 | Outpatient (POV) | payer MEDICARE, SELFPAY ==
--- OUTSIDE RECORDS SUMMARY | 2024-11-10 06:00 | XMS_ITS ---
Author Organization [facility] Address [address] [facility] [address] [place] [address] Care Team Providers Care Endless Belt Finisher Name Role Phone Nerissa Jose Unavailable [phone] AnujaAlma silva Unavailable [phone] Allergies Allergen (clinical drug ingredient) Drug/Non Drug Allergy documented on EMR Reaction Allergy Type Onset Date Status Substance with 3-tkipybs-1-methylglu taryl-coenzyme A reductase inhibitor mechanism of action (substance) Statins muscle aches Drug Allergy Active Penicillin rash Drug Allergy Active REASON FOR VISIT 7 week f.u Medications Medication SIG (Take, Route, Frequency, Duration) Notes Start Date End Date Status hydroCHLOROthiazide 12.5 MG Tablet TAKE 1 TABLET BY MOUTH DAILY Oral; Duration: 90 Days Active amLODIPine Besylate 10 MG Tablet Oral; Duration: 90 Days Active oxyCODONE HCl ER Act joseph Clotrimazole-Betamethasone 1-0.05 % Cream 1 application Externally Twice a day; Duration: 14 days 09/26/2024 Active Biotin Active Magnesium 250 MG Tablet TAKE 1 TABLET BY MOUTH ONCE DAILY Oral; Duration: 90 Days Active Social History Tobacco Use: Social History Observation Description Date Details (start date - stop date) Current Smoker NA - NA Social History Drugs/Alcohol: Social Info Question Answer Notes Drugs Have you used drugs other than those for medical reasons in the past 12 months? No Drug/Alcohol: Social Info Question Answer Notes AUDIT-C (Standard) Did you have a drink containing alcohol in the past year? Yes How often did you have a drink containing alcohol in the past year? Monthly or less (1 point) How many drinks did you have on a typical day when you were drinking in the past year? 1 or 2 drinks (0 point) How often did you have six or more drinks on one occasion in the past year? Never (0 point) Points 1 Interpretation Negative Tobacco Use: Social Info Question Answer Notes Tobacco Control (Standard) Tobacco use: Current smoker How often do you smoke cigarettes? Every day How many cigarettes a day do you smoke? 11-20 How soon after you wake up do you smoke your first cigarette? 6-30 minutes Are you interested in quitting? Not ready to quit Vital Signs Blood pressure systolic 120 mm Hg 11/11/19 25 Blood pressure diastolic 60 mm Hg 025 Height 63 in 11/10/2024 Weight 197 lbs 11/10/2024 BMI 34.89 kg/m2 11/10/2024 Encounters Encounter Location Date Provider Diagnosis [facility]- [address] [address] 11/10/2024 Alma Zapataett Uterine prolapse N81.4 and Midline cystocele N81.11 Assessments Encounter Date Diagnosis (ICD Code) Assessment Notes Treatment Notes Treatment Clinical Notes Section Notes 11/10/2024 Uterine prolapse (ICD-10 - N81.4) 11/10/2024 Midline cystocele (ICD-10 - N81.11) Plan Of Treatment Next Appt Details Follow Up: 3 Months, Reason: Pap and pessary f/u Provider Name:Alma Licea, 02/13/2025 10:30:00 AM, [address] [address], [place], [address], Procedure Notes * Category Sub-Category Detail Notes Pessary Indication Cystocele, uteri ne prolapse Pessary Type Ring with support Pessary Size # 3 FR with support pessary in correct position Removed without difficulty Betadine to vaginal mace Pessary cleansed with mild soapy water and replaced without difficulty Pessary Material non-rubber History and Physical Notes * HPI (History of Present Illness) Category Sub-Category Detail Notes Category Not es General Health Maintenance R eturns for pessary check. She has done well with pessary, and it has stayed in position. She is being scheduled for MRI of low back for right sciatic pain. I explained she can return for removal of pessary prior to the scan and replace it after. Examination Category Sub-Category Detail Notes Category Not es Gynecological VAGINA: atrophic, no les ions or discharge, 3+ cystocele EXTERNAL GENITALIA: no lesions or skin c hanges UTERUS: 3rd-4th degree uteri ne prolapse, normal size URETHRA: hypermobile Inductor Tester Inductor Tester Status Inductor Tester prese nt during physical exam. 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 7 week f.u. * HPI: G eneral Health Maintenance: Returns for pessary check. She has done well with pessary, and it has stayed in position.? She is being scheduled for MRI of low back for right sciatic pain. I explained she can return for removal of pessary prior to the scan and replace it after. 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 F ather: colon cancer. F amily History Verified..? * Social History: T obacco Use: T obacco Control (Standard) T obacco use: C urrent smoker H ow often do you smoke cigarettes? E very day H ow many cigarettes a day do you smoke? 1 1-20 H ow soon after you wake up do you smoke your first cigarette? 6 -30 minutes A re you interested in quitting? N ot ready to quit D rugs/Alcohol: D rugs H ave you used drugs other than those for medical reasons in the past 12 months? N o D rug/Alcohol: A NOVA-C (Standard) D id you have a drink containing alcohol in the past year? Y es H ow often did you have a drink containing alcohol in the past year? M onthly or less (1 point) H ow many drinks did you have on a typical day when you were drinking in the past year? 1 or 2 drinks (0 point) H ow often did you have six or more drinks on one occasion in the past year? N ever (0 point) P oints 1 I nterpretation N egative S ocial History Verified. * Medications: T aking amLODIPine Besylate 10 MG Tablet Oral , Taking Biotin , Taking Clotrimazole-Betamethasone 1-0.05 % Cream 1 application Externally Twice a day , Taking hydroCHLOROthiazide 12.5 MG Tablet TAKE 1 TABLET BY MOUTH DAILY Oral , Taking Magnesium 250 MG Tablet TAKE 1 TABLET BY MOUTH ONCE DAILY Oral , Taking oxyCODONE HCl ER , Medication List reviewed and reconciled with the patient * Allergies: P enicillin: rash - Allergy, Statins: muscle aches - Allergy. Allergies Verified. Objective: * Vitals: B P:120/60mm Hg, Ht: 63 in, Wt: 197 lbs, BMI:34.89Index. * Examination: G ynecological: EXTERNAL GENITALIA: n o lesions or skin changes. URETHRA: h ypermobile. VAGINA: a trophic, no lesions or discharge, 3+ cystocele.? UTERUS: 3 rd-4th degree uterine prolapse, normal size. C haperone: Inductor Tester Status C haperone present during physical exam. Name: Angelina Solomon Pamela itle: [facility]. Assessment: * Assessment: 1. U terine prolapse - N81.4 (Primary) 2 . M idline cystocele - N81.11 Plan: * Procedures: P essary: Indication C ystocele, uterine prolapse. Pessary Material n on-rubber. Pessary Type R ing with support. Pessary Size # 3 FR with support pessary in correct position Removed without difficulty Betadine to vaginal mace Pessary cleansed with mild soapy water and replaced without difficulty. * Follow Up: 3 Months (Reason: Pap and pessary f/u) Billing Information: * Visit Code: 94390 Office/Outpatient visit, est patient. * Sign off status: Completed Visit Status: C HK (Check Out) true * Provider: Sharri Licea MD Date: 11/10/2024 Generated for Poncho arrington/Chanel/Carley on: 12/10/2024 02:21 PM EDT
--- OUTSIDE RECORDS SUMMARY | 2024-11-17 07:00 | XMS_ITS ---
Author Organization [facility] Address [address] [facility] [address] [place] [address] Care Team Providers Care Roll Forming Supervisor Name Role Phone Nerissa Jose Unavailable [phone] AnujaAlma silva Unavailable [phone] Allergies Allergen (clinical drug ingredient) Drug/Non Drug Allergy documented on EMR Reaction Allergy Type Onset Date Status Substance with 4-punkrju-7-methylglu taryl-coenzyme A reductase inhibitor mechanism of action (substance) Statins muscle aches Drug Allergy Active Penicillin rash Drug Allergy Active REASON FOR VISIT remove pessary before MRI 11-19-2024 Medications Medication SIG (Take, Route, Frequency, Duration) Notes Start Date End Date Status hydroCHLOROthiazide 12.5 MG Tablet TAKE 1 TABLET BY MOUTH DAILY Oral; Duration: 90 Days Active Magnesium 250 MG Tablet TAKE 1 TABLET BY MOUTH ONCE DAILY Oral; Duration: 90 Days Active oxyCODONE HCl ER Act joseph amLODIPine Besylate 10 MG Tablet Oral; Duration: 90 Days Active Biotin Active Clotrimazole-Betamethasone 1-0.05 % Cream 1 application Externally Twice a day; Duration: 14 days 09/26/2024 Active Social History Tobacco Use: Social History [...] interested in quitting? Not ready to quit Problems Problem Type SNOMED Code ICD Code Onset Dates Problem Status W/U Status Risk Notes Problem History of removal of pessary (Z46.89) Active confirmed Vital Signs Blood pressure systolic 150 mm Hg 11/18/19 25 Blood pressure diastolic 70 mm Hg 025 Height 63 in 11/17/2024 Weight 197 lbs 11/17/2024 BMI 34.89 kg/m2 11/17/2024 Encounters Encounter Location Date Provider Diagnosis [facility] [address] [facility] [address] [place] [address] 11/17/2024 Alma Licea History of removal of pessary Z46.89 Assessments Encounter Date Diagnosis (ICD Code) Assessment Notes Treatment Notes Treatment Clinical Notes Section Notes 11/17/2024 History of removal of pessary (ICD-10 - Z46.89) Plan Of Treatment Next Appt Details Follow Up: 2 Days, Reason: P essary f/u Provider Name:Alma Licea, 02/13/2025 10:30:00 AM, [address] [facility] [address], [place], [address], History and Physical Notes * HPI (History of Present Illness) Category Sub-Category Detail Notes Category Not es General Health Maintenance Returns today for pe ssary removal before MRI of back and pelvis scheduled 11-19-2024. She will return on same day after scan completed for replacement of pessary. Examination Category Sub-Category Detail Notes Category Not es Gynecological VAGINA: atrophic, no les ions or discharge, 3+ cystocele, pessary in correct position, removed without difficulty EXTERNAL GENITALIA: UTERUS: URETHRA: Weapons Engineer Weapons Engineer Status Weapons Engineer prese nt during physical exam. 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 remove pessary before MRI 11-19-2024. * HPI: G eneral Health Maintenance: Returns today for pessary removal before MRI of back and pelvis scheduled 11-19-2024. She will return on same day after scan completed for replacement of pessary. 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 Allergies Verified. Objective: * Vitals: B P:150/70mm Hg, Ht: 63 in, Wt: 197 lbs, BMI:34.89Index. * Examination: G ynecological: VAGINA: a trophic, no lesions or discharge, 3+ cystocele, pessary in correct position, removed without difficulty. C haperone: Weapons Engineer Status C haperone present during physical exam. Name: Chidi Santiago itle: [facility]. Assessment: * Assessment: 1. H istory of removal of pessary - Z46.89 (Primary) Plan: * Follow Up: 2 Days (Reason: Pessary f/u) Billing Information: * Visit Code: [id number] Office/Outpatient visit, est patient. * Sign off status: Completed Visit Status: C HK (Check Out) true * Provider: Sharri Licea MD Date: 11/17/2024 Generated for Poncho arrington/Chanel/Annitaitting on: 0 12/10/2024 02:21 PM EDT
--- OUTSIDE RECORDS SUMMARY | 2024-11-19 11:00 | XMS_ITS ---
Author Organization [facility] Address [address] [facility] [address] [place] [address] Care Team Providers Care Layout Artist Name Role Phone Nerissa Jose Unavailable [phone] Alma Licea Unavailable [phone] REASON FOR VISIT pessary Medications Medication SIG (Take, Route, Frequency, Duration) Notes Start Date End Date Status Magnesium 250 MG Tablet TAKE 1 TABLET BY MOUTH ONCE DAILY Oral; Duration: 90 Days Active Biotin Active Clotrimazole-Betamethasone 1-0.05 % Cream 1 application Externally Twice a day; Duration: 14 days 09/26/2024 Active oxyCODONE HCl ER Act joseph amLODIPine Besylate 10 MG Tablet Oral; Duration: 90 Days Active hydroCHLOROthiazide 12.5 MG Tablet TAKE 1 TABLET BY MOUTH DAILY Oral; Duration: 90 Days Active Encounters Encounter Location Date Provider Diagnosis [facility] [address] [facility] [address] [place] [address] 11/19/2024 Alma Licea Midline cystocele N81.11 and Uterine prolapse N81.4 Assessments Encounter Date Diagnosis (ICD Code) Assessment Notes Treatment Notes Treatment Clinical Notes Section Notes 11/19/2024 Midline cystocele (ICD-10 - N81.11) Pessary replaced after MRI completed. 11/19/2024 Uterine prolapse (ICD-10 - N81.4) Plan Of Treatment Treatment Notes Assessment Notes Midline cystocele Pessary replaced aft er MRI completed. Next Appt Details Follow Up: 3 Months, Reason: Pessary f/u Provider Name:Alma Licea, 02/13/2025 10:30:00 AM, [address], [place], [address], History and Physical Notes * HPI (History of Present Illness) Category Sub-Category Detail Notes Category Not es General Health Maintenance R eturns after MRI performed to replace pessary. Examination Category Sub-Category Detail Notes Category Not es Gynecological VAGINA: # 3 FR pessary w ith support placed without difficulty EXTERNAL GENITALIA: UTERUS: URETHRA: Synchronizer Synchronizer Status Synchronizer prese nt during physical exam. Name: Angelina Solomon Title: [facility] Progress Notes * Aide HUMMEL BDOB: [birth year] (73 yo F)Acc No.[id number]:11/19/2024 Progress Note Patient: Aide Pal Provider: Sharri Licea MD :1950 A ge:73 Y S ex:Female Date:11/19/2024 Address:[address] [place] [address] Subjective: * Chief Complaints: * 1 . Pessary. * HPI: G eneral Health Maintenance: Returns after MRI performed to replace pessary. * Medications: T aking amLODIPine Besylate 10 MG Tablet Oral , Taking Biotin , Taking Clotrimazole-Betamethasone 1-0.05 % Cream 1 application Externally Twice a day , Taking hydroCHLOROthiazide 12.5 MG Tablet TAKE 1 TABLET BY MOUTH DAILY Oral , Taking Magnesium 250 MG Tablet TAKE 1 TABLET BY MOUTH ONCE DAILY Oral , Taking oxyCODONE HCl ER Objective: * Examination: G ynecological: VAGINA: # 3 FR pessary with support placed without difficulty. C haperone: Synchronizer Status C haperone present during physical exam. Name: Angelina Solomon Title: [facility]. Assessment: * Assessment: 1. U terine prolapse - N81.4 (Primary) 2 . M idline cystocele - N81.11 Plan: * Treatment: * Follow Up: 3 Months (Reason: Pessary f/u) Billing Information: * Visit Code: 71990 Office/Outpatient visit, est patient. * Sign off status: Completed Visit Status: C HK (Check Out) true * Provider: Sharri Licea MD Date: 0 11/19/2024 Generated for Poncho arrington/Chanel/Carley on: 0 12/10/2024 02:21 PM EDT
--- OUTSIDE RECORDS SUMMARY | 2024-12-10 14:21 | XMS_ITS | Patient Health Record ---
Author Organization [facility] Address [address] [facility] [address] [place] [address] Care Team Providers Care Lockstitch Machine Operator Name Role Phone Nerissa Jose Unavailable [phone] AnujaAlma silva Unavailable [phone] Allergies Allergen (clinical drug ingredient) Drug/Non Drug Allergy documented on EMR Reaction Allergy Type Onset Date Status Substance with 5-hbzrsjc-2-methylglu taryl-coenzyme A reductase inhibitor mechanism of action (substance) Statins muscle aches Drug Allergy Active Penicillin rash Drug Allergy Active Results Component Value Reference Range Flag Notes Tissue Pathology Reviewed date:09/01/2024 10:04:54 AM Interpretation:DEMI I Performing Lab:Jose TIRADO [facility] - MW RADHA CLIA ID [id number], [address] [facility] [facility], [address], [place] [address], Director - Chavez Snow MD Notes/Report: PATH: Clinical History: : endocervical polyp PATH: Pre-op diagnosis: : endocervical polyp Office container count: 1 AP results FINAL SURGICAL PATHOLOGY REPORT Diagnosis: ENDOCERVIX, CURETTAGE (ECC) LOW GRADE SQUAMOUS INTRAEPITHELIAL LESION (DEMI 1). COMMENT: NO PRIOR PAP WAS AVAILABLE FOR CORRELATION Gross Examination: Received is a single formalin filled container labeled Aide Purdy and additionally labeled 1950 endoc polyp . The specimen consists of multiple clear and abraham mucoid fragments measuring .8 x .2 x .1 cm in aggregate. The specimen is filtered, wrapped, and entirely submitted in a single cassette A1. (Multiple) 08/28/2024 11:39 AM Microscopic Description: The diagnosis for each specimen is derived from microscopic examination of all preparations. Unless otherwise stated, each specimen is represented by serially sectioned, H&E-stained slides from one block. Chavez Snow MD Pathologist CPT Codes: 92524 ICD Codes: N84.1 Tissue Pathology Reviewed date:09/18/2024 10:03:38 AM Interpretation: Performing Lab:CANDIDA [facility] - RADHA CLIA ID [id number], [address] [facility] [address] [facility], [address], [place] [address], Director - Chavez Snow MD Notes/Report: PATH: Clinical History: : DEMI I PATH: Pre-op diagnosis: : DEMI I Office container count: 2 AP results FINAL SURGICAL PATHOLOGY REPORT Diagnosis: A: ENDOCERVIX, CURETTAGE (ECC) BENIGN ENDOCERVICAL TISSUE. B: CERVIX, 5 O'CLOCK, BIOPSY LOW GRADE SQUAMOUS INTRAEPITHELIAL LESION (DEMI 1). Gross Examination: A: Received are two formalin filled containers labeled with Aide Purdy . Container A is additionally labeled with 1950 ecc and consists of multiple clear and abraham brown mucoid and hemorrhagic fragments measuring 1.2 x .3 x .1 cm in aggregate. The specimen is filtered, wrapped, and entirely submitted in a single cassette A1. (Multiple) 09/11/2024 1:06 PM B: Container B is additionally labeled with 5:00 1950 and consists of 3 abraham irregularly shaped fragments of tissue measuring .2 x .2 x .1 cm, .5 x .2 x .1 cm and .6 x .2 x .1 cm. Specimen is filtered, wrapped and entirely submitted in cassette B1. (3). 09/11/2024 1:08 PM Microscopic Description: The diagnosis for each specimen is derived from microscopic examination of all preparations. Unless otherwise stated, each specimen is represented by serially sectioned, H&E-stained slides from one block. Chavez Snow MD Pathologist CPT Codes: 91852 (x2) ICD Codes: N87.0 Pap w/reflex HPV Reviewed date:09/17/2024 04:58:24 PM Interpretation: Performing Lab:Jose TIRADO [facility] - ALVERTO RADHA CLIA ID [id number], [address], [address], [place] [address], Director - Chavez Snow MD Notes/Report: Any Nucleic Acid Amplification testing is performed on the [email or web address]. Diagnosis: Atypical squamous cells of undetermined significance. (ASC-US) A! AP results A! FINAL INSTRUMENT ASSEMBLY SUPERVISOR CYTOLOGY REPORT DIAGNOSIS: Atypical squamous cells of undetermined significance. (ASC-US) Specimen Adequacy: Satisfactory for interpretation with endocervical/transforma tion zone component present. Pertinent Clinical History/History of Surgery: Not provided Collection Technique: [place]-Spatula Results of Last Pap: negative LMP: unknown Date of Last Pap: Not provided Specimen Source: Cervical/Endocervical Specimen Type: ThinPrep Other Gynecological Patient Information: Menopausal Recommendation: Follow-up based on current clinical guidelines and/or clinical consideration. Screening note: This specimen has been analyzed by the ThinPrep Imaging System, an interactive computer system which assists the lab in screening of ThinPrep Pap Test slides. Following imaging, the slide was reviewed by a Educational Program Assistant and/or Pathologist. Negative Educational Note: The pap screening test aids in the detection of premalignant and malignant states of the cervix. False positive and negative results may occur. It is not a diagnostic test. If abnormal cells are reported, follow-up based on current clinical guidelines and/or clinical consideration is recommended. Chavez Snow MD Pathologist CPT Codes: 24994, 22923 ICD Codes: N87.0, R87.610 Reason For Referral No Information Medications Medication SIG (Take, Route, Frequency, Duration) [...] MG Tablet Oral; Duration: 90 Days Active Social History [...] Problem Status W/U Status Risk Notes Problem Cervical intraepithelial neoplasia grade 1 (003901806) DEMI I (cervical intraepithelial neoplasia I) (N87.0) Active confirmed Problem Endocervical polyp (8295340) Endocervical polyp (N84.1) Active confirmed Problem Midline cystocele (394622258) Midline cystocele (N81.11) Active confirmed Problem Uterine prolapse (12238799) Uterine prolapse (N81.4) Active confirmed Problem History of remov al of pessary (Z46.89) Active confirmed Vital Signs Heart Rate 77 /min 07/30/2024 Oximetry 93 % 07/30/2024 Blood pressure diastolic 70 mm Hg 11/17/2024 Height 63 in 11/17/2024 Blood pressure systolic 150 mm Hg 11/17/2024 Weight 197 lbs 11/17/2024 BMI 34.89 kg/m2 11/17/2024 Encounters Encounter Location Date Provider Diagnosis [facility]- [address] [address] 08/27/2024 Alma Anuja Endocervical polyp N84.1 ; Uterine prolapse N81.4 and Midline cystocele N81.11 [facility] [address] [place] [address] 09/26/2024 Alma Anuja Uterine prolapse N81 .4 ; Midline cystocele N81.11 and Acute vulvitis N76.2 [facility] [address] [place] [address] 11/10/2024 Alma Anuja Uterine prolapse N81 .4 and Midline cystocele N81.11 [facility] [address] [place] [address] 11/19/2024 Alma Anuja Midline cystocele N81.11 and Uterine prolapse N81.4 [facility] [address] [facility] [address] [place] [address] 09/10/2024 Alma Anuja DEMI I (cervical intraepithelial neoplasia I) N87.0 ; Uterine prolapse N81.4 and Midline cystocele N81.11 [facility] [address] [address] [place] [address] 11/17/2024 Alma Anuja History of removal o f pessary Z46.89 [facility] [address] [facility] [address] [place] [address] 07/30/2024 Nerissa Jose Uterine prolapse N81 .4 Assessments Encounter Date Diagnosis (ICD Code) Assessment Notes Treatment Notes Treatment Clinical Notes Section Notes 07/30/2024 Uterine prolapse (ICD-10 - N81.4) Plan pessary fitting. Patient education on how pessary works to support prolapse. Fitting kit / pessaries not available at our location today. Will need to be scheduled for location for fitting. 08/27/2024 Endocervical polyp (ICD-10 - N84.1) 09/10/2024 DEMI I (cervical intraepithelial neoplasia I) (ICD-10 - N87.0) 09/10/2024 Uterine prolapse (ICD-10 - N81.4) Will return for pessary placement after path returns. 09/26/2024 Midline cystocele (ICD-10 - N81.11) 11/10/2024 Uterine prolapse (ICD-10 - N81.4) 11/17/2024 History of removal of pessary (ICD-10 - Z46.89) 11/19/2024 Midline cystocele (ICD-10 - N81.11) Pessary replaced after MRI completed. 09/26/2024 Uterine prolapse (ICD-10 - N81.4) 11/10/2024 Midline cystocele (ICD-10 - N81.11) 11/19/2024 Uterine prolapse (ICD-10 - N81.4) 09/26/2024 Acute vulvitis (ICD-10 - N76.2) 09/10/2024 Midline cystocele (ICD-10 - N81.11) 08/27/2024 Midline cystocele (ICD-10 - N81.11) 08/27/2024 Uterine prolapse (ICD-10 - N81.4) Pessary fitting today with # 4 size Will order # 4 FR with support. Not sexuaaly active. Plan Of Treatment Next Appt Details Provider Name:Alma Licea, 02/13/2025 10:30:00 AM, [address], [address], Insurance Providers Payer Name Payer Address Payer Phone Subscriber Number Group Number Insured Name Patient Relationship to Insured Coverage Start Date Coverage End Date [employer] Medicare [address] [place] [address] [id number] Aide Purdy Self - patient is the insured Medical (General) History Medical History History ICD Code hypertension elevated cholesterol uterine prolapse DEMI I Surgical History Surgery Date(Month/Year) tonsillectomy breast biopsy Hospitalization History Reason Date(Month/Year) childbirth
--- NOTE | 2024-12-10 15:06 | EXP.PAIN.OV ---
HPI Data of Consult Patient: new to practice Consult date: 12/10/24 Requesting Physician: Lula Walker APRN Primary Care Provider: Saul Ortiz MD Reason for consult: Low back pain, right hip pain History of present illness: Ms. Purdy is a 73 year old female who presents today as a new patient. She is a referral from Dr. Ortiz's office. She does rate her pain today at 3 out of 10. Patient does state since September she started to experience severe pain in her low back that did radiate down her entire right leg to her foot. Patient states this was all after she drove 8 hours straight with no breaks from vacation. Patient states that the next day she could barely walk and it was very severe. Patient does state however that over time with chiropractor therapy and massage therapy it has improved and where it is really just at her low back and hip area. Patient states that it is much more manageable but it is frequently aggravated by certain positions. Prolonged sitting or long car rides are very painful. She states stairs can aggravate it. Patient has been using Tylenol and ibuprofen and has had an MRI recently at [facility]. Patient does use ice and Voltaren with some improvement. Her Vasquez has been reviewed and is appropriate. Pain at rest (0-10 scale): 3 Has patient had previous pain injection?: No Conservative treatment options previously tried: Home exercise plan (Longer than 8 weeks) and Chiropractor (Longer than 8 weeks) cc:: CC: Lula Walker APRN [facility] Disclaimer: The information contained in this section may have been updated after the patient was seen, as this information can be updated by other users. Medical History Uterine prolapse Colitis Strain of right upper arm Encounter for immunization Hypomagnesemia Tobacco use Surgical History No significant past surgical history Family History Other No significant family history Social History Smoking Status: Current every day smoker alcohol intake: current alcohol intake frequency: holidays/special occasions only current occupational status: retired Travel in the last 8 weeks?: None Review of Systems Review of Systems Review of systems:: pertinent systems reviewed and negative unless documented below Review of systems (narrative): Review of Systems: General: No recent weight changes, no fever, no sleep disturbances Respiratory: No cough, no shortness of air, no recurring pulmonary infections Cardiovascular/peripheral vascular: No chest pain, no palpitations, no edema, no shortness of breath Gastrointestinal: No new onset incontinence, normal bowel movements reported Genitourinary: No new onset incontinence Musculoskeletal: Low back pain, right hip pain Psychiatric: [Normal mood/affect] Neurological: [Denies weakness in extremities], [denies balance issues] Meds Home Medications and Allergies Home Medications ?Medication ?Instructions ?Recorded ?Confirmed ?Type vitamins A,C,X-ivga-okwpeg 4,296 1 cap PO BID 08/29/21 11/24/24 History mcg-226 mg-90 mg capsule (PreserVision AREDS) epinephrine 0.3 mg/0.3 mL 0.3 mg (0.3 mL) IM Q10M PRN 04/24/24 11/24/24 Rx injection, auto-injector (EpiPen) anaphylaxis #2 ea ezetimibe 10 mg tablet (Zetia) 10 mg PO DAILY #90 tabs 08/29/24 11/24/24 Rx magnesium oxide 250 mg PO DAILY #90 tabs 09/09/24 11/24/24 Rx oxycodone 5 mg tablet See Rx Instructions PO HS PRN pain 10/27/24 11/24/24 Rx #30 tabs hydrochlorothiazide 12.5 mg tablet 12.5 mg PO DAILY #90 tabs 11/19/24 11/24/24 Rx amlodipine 10 mg tablet 10 mg PO DAILY #90 tabs 12/09/24 Rx New Prescriptions to Start Prescriptions: Allergies Allergy/AdvReac Type Severity Reaction Status Date / Time Penicillins (PENICILLINS) Allergy Mild Verified 11/24/24 15:54 lisinopril AdvReac Severe Anaphylaxis Verified 11/24/24 15:54 statins AdvReac Severe Anaphylaxis Uncoded 11/24/24 15:54 Objective Narrative: Physical Exam: General: Alert and oriented x3, no acute distress, pleasant and cooperative Lungs: Respirations even and unlabored, symmetrical chest expansion Eyes: PERRL Musculoskeletal: Flexion and extension of lumbar [spine] somewhat guarded secondary to pain, [antalgic gait noted] point tenderness along right SI right greater trochanteric bursa with positive right Yamel's, Néstor's, Gaenslen's, compression and distraction exam Neurological: Speech clear, no gross sensory deficit Additional findings Additional findings: Proscan imaging MRI 11/19/2024 degenerative disc disease and spondylosis involving lumbar spine producing mild L2-L3 and moderate L4-L5 central canal stenosis. Mild bilateral foraminal stenosis at L4-L5. No fractures, dislocations or cancer. Minimal anterolisthesis on L4 on L5. Facet arthropathy noted at L4-L5 and L5-S1. Assessment and Plan *Assessment and plan (1) Sacroiliitis: Status: Acute Category: Medical Code(s): M46.1 - Sacroiliitis, not elsewhere classified (2) Greater trochanteric bursitis of right hip: Status: Acute Category: Medical Code(s): M70.61 - Trochanteric bursitis, right hip Plan Patient did have limited range of motion of her lumbar spine with point tenderness along her right SI and a positive right Yamel's, Néstor's, Gaenslen's, compression and distraction exam as well as point tenderness on her right bursa. I did discuss with the patient that I do believe she would benefit from these injections if her pain does continue to worsen and becomes unmanageable. Patient does have some hesitations regarding trying injection therapy and I have discussed with her that that is perfectly fine and we can definitely wait. I will order the patient compounded cream in the meantime and follow-up with her in 2 weeks. Patient agrees with this plan of care. Patient has been instructed to contact the clinic with any concerns before the next appointment. Dr. Shah has reviewed this note and agrees with this plan of care. This note was dictated using voice recognition software and make contain errors or omissions. All injections are used with Lidocaine, Bupivacaine and dexamethasone. Occasionally urine drug screen is needed to verify patient's compliance with our office pain contract. This is ordered based off specific treatments related to chronic pain with the potential to abuse certain medications.
[2024-12-10 15:27] VITALS: BP 138/102; PULSE 76; RESP 18; O2SAT 98; BMI 32.3
== END 2024-12-10 23:59 | disposition home or self-care (01) ==
LOC: SC.PAIN 14:18
PROVIDERS: PCP Internal Medicine; Visit Provider Nurse Practitioner Family
DX: M46.1 Sacroiliitis, not elsewhere classified (principal); M70.61 Trochanteric bursitis, right hip; Z79.1 Long term (current) use of non-steroidal anti-inflammatories (NSAID)
CPT/HCPCS: 99202; G0463

== ENCOUNTER 2025-03-10 09:55 | Outpatient (CLI) | payer MEDICARE, SELFPAY ==
--- OUTSIDE RECORDS SUMMARY | 2024-09-03 09:30 | XMS_ITS ---
Author Organization [facility], operated by [facility] Address [address] [facility] [address] [place] [address] Care Team Providers Care House Director Name Role Phone Nerissa Jose Unavailable [phone] Alma Licea Unavailable [phone] REASON FOR VISIT pessary insertion, pessary is in drawer Encounters Encounter Location Date Provider Diagnosis [facility] [address] [employer] [facility] [address] [place] [address] 09/03/2024 Alma Licea Plan Of Treatment Next Appt Details Provider Name:Apurva Santiago , 05/12/2025 11:30:00 AM, [address] [employer] [facility], [facility] [address], [place], [address], Progress Notes * Aide HUMMEL BDOB: [birth year] (74 yo F)Acc No.[id number]:09/03/2024 Progress Note Patient: Aide Pal Provider: Sharri Licea MD :1950 A ge:73 Y S ex:Female Date:09/03/2024 Address:[address] [place], [place] [id number] Subjective: * Chief Complaints: * P essary insertion, pessary is in drawer * Electronic signature of Alma Licea MD on 03/11/2025 at 12:59 PM EST Sign off status: Pending Visit Status: R /S (Rescheduled) * Provider: Sharri Licea MD Date: 0 09/03/2024 Generated for Poncho arrington/Chanel/Carley on: 1 05/11/2024 12:59 PM EST
--- OUTSIDE RECORDS SUMMARY | 2025-02-13 05:30 | XMS_ITS ---
Author Organization [facility] Address [address] [facility] [address] [place] [address] Care Team Providers Care Patient Sitter Name Role Phone Nerissa Jose Unavailable [phone] Alma Licea Unavailable [phone] REASON FOR VISIT 3 MONTH F.U Encounters Encounter Location Date Provider Diagnosis [facility] [address] [facility] [address] [place] [address] 02/13/2025 Alma Licea Plan Of Treatment Next Appt Details Provider Name:Apurva Santiago , 05/12/2025 11:30:00 AM, [address] [facility] [facility] [facility] [address], [place], [address], Progress Notes * Aide HUMMEL BDOB: [birth year] (74 yo F)Acc No.[id number]:02/13/2025 Progress Note Patient: Aide Pal Provider: Sharri Licea MD :1950 A ge:74 Y S ex:Female Date:02/13/2025 Address:[address] [place], [place] [id number] Subjective: * Chief Complaints: * 3 MONTH F.U * Electronic signature of Alma Licea MD on 03/11/2025 at 12:59 PM EST Sign off status: Pending Visit Status: R /S (Rescheduled) * Provider: Sharri Licea MD Date: 1 Generated for Poncho arrington/Chanel/Annitaitting on: 05/11/2024 12:59 PM EST
--- OUTSIDE RECORDS SUMMARY | 2025-02-18 05:00 | XMS_ITS ---
Author Organization [facility] Address [address] [facility] [address] [place] [address] Care Team Providers Care Support Staff Name Role Phone Nerissa Jose Unavailable [phone] Alma Licea Unavailable [phone] Allergies Allergen (clinical drug ingredient) Drug/Non Drug Allergy documented on EMR Reaction Allergy Type Onset Date Status Substance with 8-kefbpvw-7-methylglu taryl-coenzyme A reductase inhibitor mechanism of action (substance) Statins muscle aches Drug Allergy Active Penicillin rash Drug Allergy Active Results Component Value Reference Range Flag Notes Pap w/reflex HPV Reviewed date:02/23/2025 02:54:13 PM Interpretation:Negative Performing Lab: Notes/Report: [facility] Testing performed at: [WB] [address], [address], , Tank Furnace Operator: Funmilayo Huntley MD Source.............Cervix;Endocervix LMP / Prev Treat...[place] / BX Dates / Results....-2024 ascus, hx of DEMI I Other..............Post Menopausal No. of containers..01 ThinPrep Vial DIAGNOSIS: Comment N NEGATIVE FOR I NTRAEPITHELIAL LESION OR MALIGNANCY. Specimen adequacy: Comment N Satisfactory for evaluation. Endocervical and/or squamous metaplastic cells (endocervical component) are present. Clinician provided ICD10: Comment N N87.0 Performed by: Comment N Kathi Felix, Photographer . . N Note: Comment N The Pap smear is a screening test designed to aid in the detection of premalignant and malignant conditions of the uterine cervix. It is not a diagnostic procedure and should not be used as the sole means of detecting cervical cancer. Both false-positive and false-negative reports do occur. Test Methodology: Comment N This liquid based ThinPrep(R) pap test was interpreted using the ison furniture(R) Genius(TM) Cervical Algorithm whole slide imaging system. . Comment N The HPV DNA reflex criteria were not met with this specimen result therefore, no HPV testing was performed. REASON FOR VISIT 3 month follow up, repeat pap, hx of DEMI I Medications Medication SIG (Take, Route, Frequency, Duration) Notes Start Date End Date Status oxyCODONE HCl ER Act joseph Biotin Active Magnesium 250 MG Tablet TAKE 1 TABLET BY MOUTH ONCE DAILY Oral; Duration: 90 Days Active amLODIPine Besylate 10 MG Tablet Oral; Duration: 90 Days Active hydroCHLOROthiazide 12.5 MG Tablet TAKE 1 TABLET BY MOUTH DAILY Oral; Duration: 90 Days Active Clotrimazole-Betamethasone 1-0.05 % Cream 1 application [...] to quit Vital Signs Blood pressure systolic 130 mm Hg 02/19/20 25 Blood pressure diastolic 72 mm Hg 025 Height 63 in 02/18/2025 Encounters Encounter Location Date Provider Diagnosis [facility] [address] [facility] [address] [place] [address] 02/18/2025 Alma Anuja DEMI I (cervical intraepithelial neoplasia I) N87.0 ; Midline cystocele N81.11 and Uterine prolapse N81.4 Assessments Encounter Date Diagnosis (ICD Code) Assessment Notes Treatment Notes Treatment Clinical Notes Section Notes 02/18/2025 DEMI I (cervical intraepithelial neoplasia I) (ICD-10 - N87.0) 02/18/2025 Midline cystocele (ICD-10 - N81.11) Pessary replaced after MRI completed. 02/18/2025 Uterine prolapse (ICD-10 - N81.4) Plan Of Treatment Treatment Notes Assessment Notes Midline cystocele Pessary replaced aft er MRI completed. Next Appt Details Follow Up: Will call with Pa p results and f/u plan., Reason: Provider Name:Apurva Santiago , 05/12/2025 11:30:00 AM, [address] [facility] [address], [place], [address], Procedure Notes * Category Sub-Category Detail Notes Pessary Indication Cystocele, uteri ne prolapse Pessary Type Ring with support Pessary Size # 3 FR with support pessary in correct position Removed without difficulty Betadine to vaginal mace after Pap done Pessary cleansed with mild soapy water and replaced without difficulty Pessary Material non-rubber History and Physical Notes * HPI (History of Present Illness) Category Sub-Category Detail Notes Category Not es General Health Maintenance Returns for pessary f/u and 6 month repeat Pap with history of colposcopy biopsy DEMI I. She is doing very well with pessary and states symptoms have been significantly relieved. Examination Category Sub-Category Detail Notes Category Not es Gynecological CERVIX: no lesions or di scharge or bleeding, PAP smear done VAGINA: # 3 FR with support pessary in correct position, removed without difficulty, atrophic, no lesions or discharge, 3+ cystocele EXTERNAL GENITALIA: no lesions or skin c hanges UTERUS: 3rd-4th degree uteri ne prolapse, normal size URETHRA: hypermobile Hall Supervisor Hall Supervisor Hall Supervisor presen t during physical exam. Name: Angelina Solomon Title: SOCIAL SERVICES Progress Notes * Aide PURDY BDOB: [birth year] (74 yo F)Acc No.[id number]:02/18/2025 Progress Note Patient: Aide Pal Provider: Sharri Licea MD :1950 A ge:74 Y S ex:Female Date:02/18/2025 Address:[address] [place] [address], [id number] Subjective: * Chief Complaints: * 1 . 3 month follow up. 2. repeat pap, hx of DEMI I. * HPI: G eneral Health Maintenance: Returns for pessary f/u and 6 month repeat Pap with history of colposcopy biopsy DEMI I. She is doing very well with pessary and states symptoms have been significantly relieved. * Medical History: * Financial Reporting Director History: P ap Smear History: D ate [...] other: lung cancerhypertension. F ather: colon cancer. * Social History: T obacco Use: T [...] P oints 1 I nterpretation N egative * Medications: T aking amLODIPine Besylate 10 MG Tablet Oral , Taking Biotin , Taking Clotrimazole-Betamethasone 1-0.05 % Cream 1 application Externally Twice a day , Taking hydroCHLOROthiazide 12.5 MG Tablet TAKE 1 TABLET BY MOUTH DAILY Oral , Taking Magnesium 250 MG Tablet TAKE 1 TABLET BY MOUTH ONCE DAILY Oral , Taking oxyCODONE HCl ER * Allergies: P enicillin: rash - Allergy, Statins: muscle aches - Allergy. Objective: * Vitals: B P:130/72mm Hg, Ht: 63 in. * Examination: G ynecological: EXTERNAL GENITALIA: n o lesions or skin changes. URETHRA: h ypermobile. VAGINA: # 3 FR with support pessary in correct position, removed without difficulty, atrophic, no lesions or discharge, 3+ cystocele. CERVIX: n o lesions or discharge or bleeding, PAP smear done. UTERUS: 3 rd-4th degree uterine prolapse, normal size. C haperone: Hall Supervisor C haperone present during physical exam. Name:? Angelina Santiago itle: SHERICE. Assessment: * Assessment: 1. U terine prolapse - N81.4 (Primary) 2 . C IN I (cervical intraepithelial neoplasia I) - N87.0 3 . M idline cystocele - N81.11 Plan: * Treatment: 2. M idline cystocele Notes: Pessary replaced after MRI completed. * Procedures: P essary: Indication C ystocele, uterine prolapse. Pessary Material n on-rubber. Pessary Type R ing with support. Pessary Size # 3 FR with support pessary in correct position Removed without difficulty Betadine to vaginal mace after Pap done Pessary cleansed with mild soapy water and replaced without difficulty. * Follow Up: W ill call with Pap results and f/u plan. Billing Information: * Visit Code: 31944 Office/Outpatient visit, est patient. * Procedure Codes: * Sign off status: Completed Visit Status: C HK (Check Out) true * Provider: Sharri Licea MD Date: Generated for Poncho arrington/Chanel/Carley on: 1 05/11/2024 12:59 PM EST
[2025-03-10 15:22] LABS: Hematocrit 39.8 % (37.0-47.0); Hemoglobin 13.6 g/dL (12.2-16.2); Immature Granulocytes % 0.3 %; Mean Corpuscular HGB Conc 34.2 g/dL (31.8-35.4); Mean Corpuscular Hemoglobin 31.9 pg (27.0-31.2); Mean Corpuscular Volume 93.4 fl (81-99); Nucleated Red Blood Cells % 0 %; Platelet Count 147 K/mm3 (142-424); Red Blood Count 4.26 M/mm3 (4.20-5.40); Red Cell Distribution Width-SD 43.8 fL; White Blood Count 7.7 K/mm3 (4.8-10.8)
[2025-03-10 15:55] LABS: Alanine Aminotransferase 15 U/L (12-78); Albumin Level 4.7 g/dl (3.5-5.0); Albumin/Globulin Ratio 2.2 (1.1-1.8); Alkaline Phosphatase 80 U/L (38-126); Anion Gap 11.9 mEq/L (5-15); Aspartate Amino Transferase 25 U/L (14-36); Bilirubin,Total 0.6 mg/dl (0.2-1.3); Blood Urea Nitrogen 30 mg/dl (7-17); Calcium 9.8 mg/dl (8.4-10.2); Carbon Dioxide 25 mmol/L (22.0-30.0); Chloride 104 mmol/L (98-107); Cholesterol 235 mg/dl (140-200); Creatinine,Serum 1.10 mg/dl (0.52-1.04); Estimated Glomerular Filt Rate 48 ml/min (>60); GFR (African American) 59 ML/MIN (>60); Globulin 2.1 g/dL (1.3-3.2); Glucose 77 mg/dl (74-100); HDL Cholesterol 59 mg/dl (40-60); Potassium 4.9 mmoL/L (3.5-5.1); Sodium 136 mmol/L (136-145); Total Protein,Serum 6.8 g/dl (6.3-8.2); Triglycerides 138 mg/dl (30-150)
--- OUTSIDE RECORDS SUMMARY | 2025-03-11 12:59 | XMS_ITS ---
Laboratory report Created on: February 25, 2025 SOFI HUMMEL : 1950 Sex: Female Author Name ANKIT MELO Organization Unknown PROBLEMS Problems List Code Description N87.0 RESULTS Laboratory Orders Date Order Code Test 2025-02-18 IGP,RFX APT HPV ASCU,16/18,45 Laboratory Results Date LOINC Test Value Unit Reference Range Interpre tation 2025-02-18 74584-7 DIAGNOSIS: NEGATIVE FOR INTRAEPITHELIAL LESION OR MALIGNANCY. 2025-02-18 [id number] NIL 2025-02-18 8251-1 NOTE: PAPSMR 2025-02-18 [id number] TEST METHODOLOG Y: GENPAP 2025-02-18 NEGHPV
--- OUTSIDE RECORDS SUMMARY | 2025-03-11 13:00 | XMS_ITS | Patient Health Record ---
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 Name Role Phone Nerissa Jose Unavailable [phone] AnujaAlma silva Unavailable [phone] Allergies Allergen (clinical drug ingredient) Drug/Non Drug Allergy documented on EMR Reaction Allergy Type Onset Date Status Substance with 8-tluweak-8-methylglu taryl-coenzyme A reductase inhibitor mechanism of action (substance) Statins muscle aches Drug Allergy Active Penicillin rash Drug Allergy Active Results Component Value Reference Range Flag Notes Tissue Pathology Reviewed date:09/01/2024 10:04:54 AM Interpretation:DEMI I Performing Lab:Jose TIRADO [facility] - MW [facility] CLIA ID [id number], [address] [facility], [address], [place] [address], Director - Chavez Snow MD Notes/Report: PATH: [...] block. Chavez Snow MD Pathologist CPT Codes: 00540 ICD Codes: N84.1 Pap w/reflex HPV Reviewed date:09/17/2024 04:58:24 PM Interpretation: Performing Lab:CANDIDA [facility] - [facility] CLIA ID [id number], [address] [facility], [address], [place] [address], Director - Chavez Snow MD Notes/Report: Any Nucleic Acid Amplification testing is performed on the Clickslide. Diagnosis: Atypical squamous cells of undetermined significance. (ASC-US) A! AP results A! FINAL COLLETER CYTOLOGY REPORT DIAGNOSIS: Atypical squamous cells of undetermined significance. (ASC-US) Specimen Adequacy: Satisfactory for interpretation with endocervical/transforma tion zone component present. Pertinent Clinical History/History of Surgery: Not provided Collection Technique: [place]-Spatula Results of Last Pap: negative LMP: unknown [...] imaging, the slide was reviewed by a Gas Collection System Operator and/or Pathologist. Negative Educational Note: The pap screening test aids in the detection of premalignant and malignant states of the cervix. False positive and negative results may occur. It is not a diagnostic test. If abnormal cells are reported, follow-up based on current clinical guidelines and/or clinical consideration is recommended. Chavez Snow MD Pathologist CPT Codes: 25783, 41790 ICD Codes: N87.0, R87.610 Tissue Pathology Reviewed date:09/18/2024 10:03:38 AM Interpretation: Performing Lab:Jose TIRADO [facility] - [facility] CLIA ID [id number], [address] [facility], [address], [place] [address], Director - Chavez Snow MD Notes/Report: PATH: [...] block. Chavez Snow MD Pathologist CPT Codes: 76392 (x2) ICD Codes: N87.0 Pap w/reflex HPV Reviewed date:02/23/2025 02:54:13 PM Interpretation:Negative Performing Lab: Notes/Report: [facility] Testing performed at: [WB] [address], [address], , Shopfitter: Funmilayo Huntley MD Source.............Cervix;Endocervix LMP / Prev Treat...[place] / BX Dates / Results.... ascus, hx of DEMI I Other..............Post Menopausal No. of containers..01 ThinPrep Vial DIAGNOSIS: Comment N NEGATIVE FOR INTRAEPITHELIAL LESION OR MALIGNANCY. Specimen adequacy: Comment N Satisfactory for evaluation. Endocervical and/or squamous metaplastic cells (endocervical component) are present. Clinician provided ICD10: Comment N N87.0 Performed by: Comment N Kathi Felix, Can Dryer . . N Note: Comment N The [...] ThinPrep(R) pap test was interpreted using the WORKING OUT WORKS(R) Genius(TM) Cervical Algorithm whole slide imaging system. . Comment N The HPV DNA reflex criteria were not met with this specimen result therefore, no HPV testing was performed. Reason For Referral No Information Medications Medication SIG (Take, Route, Frequency, Duration) Notes Start Date End Date Status oxyCODONE HCl ER Act joseph Clotrimazole-Betamethasone 1-0.05 % Cream 1 application Externally Twice a day; Duration: 14 days 09/26/2024 Active Biotin Active Magnesium 250 MG Tablet TAKE 1 TABLET BY MOUTH ONCE DAILY Oral; Duration: 90 Days Active amLODIPine Besylate 10 MG Tablet Oral; Duration: 90 Days Active hydroCHLOROthiazide 12.5 MG Tablet TAKE 1 TABLET BY MOUTH DAILY Oral; Duration: 90 Days Active Social [...] Notes Problem Cervical intraepithelial neoplasia grade 1 (738936158) DEMI I (cervical intraepithelial neoplasia I) (N87.0) Active confirmed Problem Endocervical polyp (5669723) Endocervical polyp (N84.1) Active confirmed Problem Midline cystocele (584414183) 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1 ; Uterine prolapse N81.4 and Midline cystocele N81.11 [facility] [address] [place] [address] 09/26/2024 Alma Anuja Uterine prolapse N81 .4 ; Midline cystocele N81.11 and Acute vulvitis N76.2 [facility] [address] [place] [address] 11/10/2024 Alma Anuja Uterine prolapse N81 .4 and Midline cystocele N81.11 [facility] [address] [facility] [address] [place] [address] 11/19/2024 Alma Anuja Midline cystocele N81.11 and Uterine prolapse N81.4 [facility] [address] [facility] [address] [place] [address] 02/18/2025 Alma Anuja DEMI I (cervical intraepithelial neoplasia I) N87.0 ; Midline cystocele N81.11 and Uterine prolapse N81.4 [facility] [address] [facility] [address] [place] [address] 09/10/2024 Alma Anuja DEMI I (cervical intraepithelial neoplasia I) N87.0 ; Uterine prolapse N81.4 and Midline cystocele N81.11 [facility] [address] [address] 11/17/2024 Lama Anuja History of removal o f pessary Z46.89 [facility] [address] [facility] [address] [place] [address] 07/30/2024 Nerissa Jose Uterine prolapse N81 .4 [...] completed. 09/26/2024 Uterine prolapse (ICD-10 - N81.4) 02/18/2025 DEMI I (cervical intraepithelial neoplasia I) (ICD-10 - N87.0) 02/18/2025 Midline cystocele (ICD-10 - N81.11) Pessary replaced after MRI completed. 11/10/2024 Midline cystocele (ICD-10 - N81.11) 11/19/2024 Uterine prolapse (ICD-10 - N81.4) 09/26/2024 Acute vulvitis (ICD-10 - N76.2) 09/10/2024 Midline cystocele (ICD-10 - N81.11) 08/27/2024 Midline cystocele (ICD-10 - N81.11) 08/27/2024 Uterine prolapse (ICD-10 - N81.4) Pessary fitting today with # 4 size Will order # 4 FR with support. Not sexuaaly active. 02/18/2025 Uterine prolapse (ICD-10 - N81.4) Plan Of Treatment Next Appt Details Provider Name:Apurva Pamela , 05/12/2025 11:30:00 AM, [address], [address], Insurance Providers Payer Name Payer Address Payer Phone Subscriber Number Group Number Insured Name Patient Relationship to Insured Coverage Start Date Coverage End Date [employer] [address] [place] [address] [id number] Aide Purdy Self - patient is the insured Medical (General) History Medical History History ICD Code hypertension elevated cholesterol uterine prolapse DEMI I Surgical History Surgery Date(Month/Year) tonsillectomy breast biopsy Hospitalization History Reason Date(Month/Year) childbirth
== END 2025-03-10 23:59 ==
LOC: LAB.DROPOF 03-11 11:48
PROVIDERS: PCP Internal Medicine; Visit Provider Internal Medicine
DX: K52.9 Noninfective gastroenteritis and colitis, unspecified (principal); I10 Essential (primary) hypertension; E78.5 Hyperlipidemia, unspecified
CPT/HCPCS: 80053; 80061; 85025